=== PATIENT | male | born 1985 | race Two or more races ===

== ENCOUNTER 2021-06-03 17:25 | Emergency (ER) | payer MEDICAID, SELFPAY ==
--- NOTE | 2021-06-03 20:08 | PC.NURSE ---
pt not in the waiting room on 3 calls.
== END 2021-06-03 20:23 | disposition left against medical advice (07) ==
PROVIDERS: Emergency Provider Emergency Medicine
DX: K59.00 Constipation, unspecified (principal)

== ENCOUNTER 2021-10-26 17:42 | Emergency (ER) | payer MEDICAID, SELFPAY ==
--- NOTE | ~2021-10-26 | XR_ITS ---
EXAMINATION: XR ABDOMEN KUB CLINICAL INDICATION: Constipation COMPARISON: None TECHNIQUE: AP view of the abdomen. FINDINGS: The bowel gas pattern is normal with no evidence of ileus or obstruction. Moderate stool burden is present in the colon. No unusual soft tissue calcifications are noted. The bones are unremarkable. XR/XR KUB IMPRESSION: Moderate stool burden is present. No evidence of bowel obstruction.
[2021-10-26 17:48] VITALS: BP 116/79; PULSE 73; RESP 18; TEMP 36.6; O2SAT 99; BMI 22.7
--- NOTE | 2021-10-26 18:34 | ED_ITS ---
HPI - Abdominal Pain General Chief Complaint: Abdominal Pain Stated Complaint: liver/ kidney pain? hurts to urinate Time Seen by Provider: 10/26/21 18:19 Source: patient Mode of arrival: ambulatory Limitations: no limitations History of Present Illness HPI narrative: Patient is a 35-year-old male with a past medical history of substance abuse, currently prescribed Suboxone. He presents emergency department for evaluation of abdominal pain. Patient reports 2 months ago he had a single occurrence of blood in his stool for which he presented to the emergency department and left due to long wait times. He denies any recurrence of bloody or dark stool. However, states soon after that he began experiencing left lower quadrant abdominal pain, suprapubic pain, pain with initiation of urination, urinary frequency, urinary hesitancy. Reports symptoms have been increasing over the past week. In addition, he does report penile discharge that is white/yellow,denies history of or suspicion of sexually transmitted infection, currently sexually active with one sexual partner that he has been for many years. He does have a history of constipation, for which he is taking Colace twice daily with last bowel movement 3 days ago, he feels bloated, and this is affecting his appetite. He denies fevers, chills, nausea, vomiting, upper abdominal pain, testicular pain or swelling, blood in stool, mucus in stool, da rk stools, recent unintentional weight loss, history of renal calculi, history of urinary tract infection or pyelonephritis. MD elicited complaint: abdominal pain Onset (ago): month(s) Pain Consistency: constant Location: LLQ Severity: moderate Pain scale (0-10): 5 Quality: aching Associated symptoms: constipation and dysuria Related Data Previous Rx's Medication Instructions Recorded doxycycline hyclate 100 mg capsule 100 mg PO BID 7 Days #14 cap 10/26/21 sennosides 8.6 mg capsule (senna) 8.6 mg PO BEDTIME PRN #7 cap 10/26/21 Allergies Allergy/AdvReac Type Severity Reaction Status Date / Time No Known Allergies Allergy Unverified 06/06/20 17:02 Review of Systems Review of Systems Constitutional: No weight loss, fever, chills, weakness or fatigue. HEENT: No visual loss, blurred vision, double vision or yellow sclera. No hearing loss, sneezing, congestion, runny nose or sore throat. Skin: No rash or itching. Cardiovascular: No chest pain, chest pressure or chest discomfort. No palpitations or pedal edema. Respiratory: No shortness of breath, cough or sputum production. Gastrointestinal: + constipation, abdominal pain as noted in HPI. No nausea, vomiting or diarrhea. No blood in stool. Genitourinary: + burning micturition, urinary frequency and hesitancy. Neurologic: No headache, dizziness, syncope. Musculoskeletal: No muscle pain, back pain, joint pain or stiffness. Hematologic: No bleeding or bruising. Lymphatics: No enlarged lymph nodes. Psychiatric:No depression or anxiety. Endocrine: No reports of sweating. No polydipsia. Physical Exam Verdana 4l Vital Signs: Verdana 4d Verdana 4d Vital Signs: Verdana 4d Verdana 4Bd Last Vital Signs Verdana 4d Carton Wrapper New 4d Carton Wrapper New 4d Temp 98 F 10/26/21 17:48 Carton Wrapper New 4d Pulse 70 10/26/21 19:03 Carton Wrapper New 4d Resp 15 10/26/21 19:03 BP 131/84 10/26/21 19:03 Pulse Ox 97 10/26/21 19:03 BMI result Body Mass Index 22.7 Vital signs have been reviewed as normal and appeared to be correct. Blood pressure normal.? Heart rate normal.? Respiration rate normal. Temperature normal.? Oxygen saturation normal. Appearance: Alert.?Oriented to person, place and time. No acute distress.?Normal affect. Eyes: Pupils equal, round and reactive to light.? ENT: Pharynx normal.?? Neck: Normal inspection.? Neck supple.?? CVS: Heart sounds normal. Normal heart rate and rhythm.? Pulses normal.?? Respiratory: No respiratory distress.? Lung sounds clear to auscultation bilaterally?? Abdomen: Soft, non-tender to palpation. Normoactive bowel sounds. No pulsatile mass.? : Performed with flamer sealer; Rahat, PCT. Normal penis and testes. No scrotal mass, no tenderness, no active urethral discharge, penile lesions. No inguinal hernia. Skin: Skin warm and dry.? Normal skin color.? Normal skin turgor.?? Extremities: No lower extremity edema.? Neuro: Moves all extremities spontaneously. Sensation intact bilaterally. No focal neuro deficits. Ambulates with normal steady gait. Course Course Course Narrative: Patient is 35-year-old male being evaluated for abdominal pain and pain with urination and penile discharge. He is well appearing, nontoxic, afebrile, not tachycardic nor hypotensive. History and physical exam not consistent with GI perforation, GI bleed, AAA, aortic dissection. Not consistent with strangulated hernia, bowel obstruction, mesenteric ischemia, diverticulitis, testicular torsion. Given the presence of penile discharge and painful urination will treat empirically for gonorrhea and chlamydia with ceftriaxone 500 mg IM and will be discharged home with doxycycline 100 mg twice daily for 7 days. Will obtain urinalysis, CBC and CMP. KUB to evaluate for constipation or obstruction, though low suspicion for this. Reevaluation(s) Reevaluation #1: CBC and CMP are unremarkable. Urinalysis unremarkable no microscopic hematuria or concern for urinary tract infection. KUB indicates moderate stool burden but no concern for obstruction. Discussed findings with patient. Reviewed plan for discharge home, given new prescription for senna in addition to docusate for constipation, discussed reasons to return to the emergency department, all questions answered, patient agrees with plan of care. Time: 19:52 MDM - Abdominal Pain Medical Records Attestation: I reviewed the patient's medical records. Lab Data Attestation: I reviewed the patient's lab results. Result diagrams: 10/26/21 18:53 10/26/21 18:53 Labs: Lab Results 10/26/21 10/26/21 10/26/21 Range/Units 18:53 18:53 18:53 WBC 5.8 (4.8-10.8) X10*3/uL RBC 4.30 L (4.60-5.80) X10*6/uL Hgb 13.3 L (14.0-18.0) g/dl Hct 38.7 L (42.0-52.0) % MCV 90.0 (80.0-98.0) fL MCH 30.9 (27.0-33.0) pg MCHC 34.4 (31.0-36.0) g/dl RDW 12.4 (11.0-16.0) % Plt Count 232 (160-400) X10*3/uL MPV 9.7 (9.4-12.4) fL Absolute Nucleated RBC 0.000 (0.0-0.012) X10*3/uL Nucleated RBC % (auto) 0.0 (0.0-0.2) /100WBC Sodium 140 (135-145) mmol/L Potassium 3.8 (3.3-5.1) mmol/L Chloride 104 (96-108) mmol/L Carbon Dioxide 29 (22-29) mmol/L Anion Gap 11 L (12-20) BUN 10 (9-16) mg/dL Creatinine 0.83 (0.5-1.4) mg/dL Estim Creat Clear Calc 115.5 Estimated GFR > 60 Random Glucose 78 (60-115) mg/dL Calcium 9.9 (8.4-10.2) mg/dL Total Bilirubin 0.5 (0.0-1.0) mg/dL AST 16 (5-37) U/L ALT < 6 (0-40) U/L Alkaline Phosphatase 88 (39-117) U/L Total Protein 8.2 H (6.5-8.0) g/dL Albumin 4.5 (3.5-5.0) g/dL Lipase 8 (8-78) U/L Urine Color Urine Appearance Urine pH (5.0-8.0) Ur Specific [place] (1.005-1.025) Urine Protein (NEG-TRACE) MG/DL Urine Glucose (UA) (NEG) MG/DL Urine Ketones (NEG) MG/DL Urine Blood (NEG) Urine Nitrite (NEG) Ur Leukocyte Esterase (NEG) 10/26/21 Range/Units 19:07 WBC (4.8-10.8) X10*3/uL RBC (4.60-5.80) X10*6/uL Hgb (14.0-18.0) g/dl Hct (42.0-52.0) % MCV (80.0-98.0) fL MCH (27.0-33.0) pg MCHC (31.0-36.0) g/dl RDW (11.0-16.0) % Plt Count (160-400) X10*3/uL MPV (9.4-12.4) fL Absolute Nucleated RBC (0.0-0.012) X10*3/uL Nucleated RBC % (auto) (0.0-0.2) /100WBC Sodium (135-145) mmol/L Potassium (3.3-5.1) mmol/L Chloride (96-108) mmol/L Carbon Dioxide (22-29) mmol/L Anion Gap (12-20) BUN (9-16) mg/dL Creatinine (0.5-1.4) mg/dL Estim Creat Clear Calc Estimated GFR Random Glucose (60-115) mg/dL Calcium (8.4-10.2) mg/dL Total Bilirubin (0.0-1.0) mg/dL AST (5-37) U/L ALT (0-40) U/L Alkaline Phosphatase (39-117) U/L Total Protein (6.5-8.0) g/dL Albumin (3.5-5.0) g/dL Lipase (8-78) U/L Urine Color YELLOW Urine Appearance CLEAR Urine pH 6.5 (5.0-8.0) Ur Specific [place] 1.020 (1.005-1.025) Urine Protein NEG (NEG-TRACE) MG/DL Urine Glucose (UA) NEG (NEG) MG/DL Urine Ketones NEG (NEG) MG/DL Urine Blood NEG (NEG) Urine Nitrite NEG (NEG) Ur Leukocyte Esterase NEG (NEG) Imaging Data KUB XR: Attestation: I personally reviewed and interpreted this imaging study as follows: Radiologist's impression: IMPRESSION: Moderate stool burden is present. No evidence of bowel obstruction. Discharge Plan Discharge Clinical Impression: Constipation, Difficult or painful urination Patient Disposition: Home, Self-Care Instructions: Constipation (ED) Additional Instructions: Regarding your penile discharge, you received ceftriaxone while in the emergency department, please take doxycycline twice daily for 7 days. For your constipation can take Senna 2 tablets at night in addition to your colace. Stop taking this medication if you develop diarrhea. Please follow-up with your primary care provider in 1-2 days. You may return to the emergency department with any new or worsening concerns or symptoms. Prescriptions: New doxycycline hyclate 100 mg capsule 100 mg PO BID 7 Days Qty: 14 0RF senna 8.6 mg capsule 8.6 mg PO BEDTIME PRN (Reason: constipation) Qty: 7 0RF Interventions: ED Discharge Assessment Last Done: 10/26/21 20:04 Discharge Date/Time: 10/26/21 20:09 [facility] Past Medical History Attestation statement: The following information was validated with the patient. Source: old records reviewed Social History Social History Advance Directives: No Advance Directives Information Provided: No
[2021-10-26 19:00] LABS: Hematocrit 38.7 % (42.0-52.0); Hemoglobin 13.3 g/dl (14.0-18.0); Mean Corpuscular HGB Conc 34.4 g/dl (31.0-36.0); Mean Corpuscular Hemoglobin 30.9 pg (27.0-33.0); Mean Platelet Volume 9.7 fL (9.4-12.4); Platelet Count 232 X10*3/uL (160-400); Red Cell Distribution Width 12.4 % (11.0-16.0); White Blood Count 5.8 X10*3/uL (4.8-10.8)
[2021-10-26 19:03] VITALS: BP 131/84; PULSE 70; RESP 15; O2SAT 97
[2021-10-26 19:13] LABS: Lipase 8 U/L (8-78)
[2021-10-26 19:20] LABS: Appearance Urine CLEAR; Color Urine YELLOW; Glucose Urine UA NEG (NEG); Leukocyte Esterase Urine NEG (NEG); Nitrite Urine NEG (NEG); PH 6.5 (5.0-8.0); Urine Blood NEG (NEG); Urine Ketones NEG (NEG); Urine Protein NEG (NEG-TRACE)
[2021-10-26 19:32] LABS: Alanine Aminotransferase < 6 U/L (0-40); Albumin Level 4.5 g/dL (3.5-5.0); Alkaline Phosphatase 88 U/L (39-117); Anion Gap 11 (12-20); Aspartate Amino Transferase 16 U/L (5-37); Bilirubin Total 0.5 mg/dL (0.0-1.0); Blood Urea Nitrogen 10 mg/dL (9-16); Calcium 9.9 mg/dL (8.4-10.2); Carbon Dioxide 29 mmol/L (22-29); Chloride 104 mmol/L (96-108); Creatinine Clr Calc Pharmacy 115.5; Estimated Glomerular Filt Rate > 60; Glucose Random 78 mg/dL (60-115); Potassium 3.8 mmol/L (3.3-5.1); Sodium 140 mmol/L (135-145); Total Protein 8.2 g/dL (6.5-8.0)
[2021-10-26] MEDS: cefTRIAXone sodium 500 MG, Lidocaine HCl 1 % MPF 1 ML IM (20:01)
[2021-10-27 00:56] LABS: CT PCR NOT DETECTED (Not Detect.); NG PCR NOT DETECTED (Not Detect.)
== END 2021-10-26 20:09 | disposition home or self-care (01) ==
PROVIDERS: Nurse Practitioner Family; Emergency Provider Emergency Medicine Emergency Medical Services
DX: R10.13 Epigastric pain (principal); K59.00 Constipation, unspecified; R30.0 Dysuria; Z79.899 Other long term (current) drug therapy
CPT/HCPCS: 36415; 74018; 80053; 81003; 83690; 85027; 87491; 87591; 96360; 99283; J0696

== ENCOUNTER 2021-10-30 15:20 | Emergency (ER) | payer MEDICAID, SELFPAY | END 2021-10-30 19:20 | disposition left against medical advice (07) | PROVIDERS: Emergency Provider Emergency Medicine | DX: R11.10 Vomiting, unspecified (principal) ==

== ENCOUNTER 2022-02-22 13:08 | Emergency (ER) | payer MEDICAID, SELFPAY ==
--- NOTE | ~2022-02-22 | CT_ITS ---
EXAMINATION: CT SOFT TISSUE NECK WITHOUT CONTRAST CLINICAL INFORMATION: Dental pain and right facial swelling. Question deep space infection. COMPARISON: None TECHNIQUE: Helical imaging was performed in the axial plane with generation of coronal and sagittal reformatted images. This CT examination was performed using dose optimization techniques as appropriate, variously including the following: *Automated exposure control *Adjustment of mA and/or kV according to patient size (this includes techniques or standardized protocols for targeted exams where dose is matched to indication/reason for exam; i.e. extremities or head) *Use of iterative reconstruction technique DLP: 690 mGy-cm FINDINGS: Periapical lucency surrounding the roots of the right mandibular first molar tooth with a focal dehiscence of the buccal surface of the mandible compatible with periapical disease. There is additional hilar periapical lucency surrounding the root of the right mandibular canine. Extensive soft tissue infiltration along the buccal surface of the mandible and extensive subcutaneous edema in the perimandibular soft tissues extending beneath the mandible into the neck anteriorly well below the level of the hyoid bone involving the tissues superficial and deep to the platysma muscle compatible with cellulitis and soft tissue infection. Mild thickening of the right platysma muscle. No appreciable discrete well-formed fluid collection on this noncontrast exam. Asymmetrically prominent right submandibular lymph node and upper cervical lymph nodes measuring up to 0.8 cm in short axis and likely reactive. No additional lymphadenopathy. No appreciable edema or swelling at the floor the mouth or involving the tongue. Normal appearance of the glottis and retropharyngeal soft tissues. Major salivary glands and thyroid gland are unremarkable. Minimal right apical pleural thickening. Visualized upper lungs otherwise grossly clear. Small biapical blebs are paraseptal emphysematous changes noted. Visualized intracranial contents are grossly unremarkable. Globes and retro-orbital structures are within normal limits. Normal appearance of the paint tinter space and parapharyngeal fat. Visualized paranasal sinuses and mastoid air cells are normally aerated. No acute fracture or suspicious osseous lesion. Normal alignment of the TMJs. CT/CT soft tissue neck wo con IMPRESSION: 1. Periapical lucency/disease compatible with periapical abscess surrounding the root of the right mandibular first molar tooth with dehiscence of the buccal surface of the mandible and extensive overlying soft tissue infiltration/inflammatory change compatible and subcutaneous edema compatible with edema or cellulitis extending throughout the anterior neck right greater than left well below the hyoid bone. 2. No discrete low-density fluid collection/soft tissue abscess appreciated. 3. Mildly asymmetrically enlarged right upper cervical and submandibular lymph nodes, likely reactive.
[2022-02-22 13:14] VITALS: BP 126/79; PULSE 70; RESP 18; TEMP 36.9; O2SAT 100; BMI 18.5
--- NOTE | 2022-02-22 15:45 | ED.DENTAL ---
HPI - Dental/Oral General Chief complaint: Dental/Oral Stated complaint: Dental pain from root canal Time Seen by Provider: 02/22/22 15:29 Source: patient Mode of arrival: ambulatory Limitations: no limitations History of Present Illness HPI Narrative: Patient presents emergency department for evaluation of dental pain. He reports 1 month ago having a root canal to bottom right for molars. Soon after he developed an infection which he reports was draining pus he was seen by his dentist to prescribe antibiotics. He states once the symptoms resolved he stops taking the antibiotics. Four days ago he developed return of pain and increased swelling to the right side of his face therefore he began taking the leftover antibiotics again, states he has been taking them 3 times a day for the past 4 days. Over the past 2 days the swelling has extended down below was drawn he feels the right side of his neck to be swollen. He feels feverish at times, Has not taken his temperature. Has been taking ibuprofen 800mg with improvement in his pain. Denies neck pain, neck stiffness, chest pain, palpitations, shortness of breath, difficulty breathing, nausea, vomiting, abdominal pain. Teeth map: 1. root canal 2. root canal 3. root canal 4. root canal Related Data Previous Rx's Medication Instructions Recorded doxycycline hyclate 100 mg capsule 100 mg PO BID 7 Days #14 cap 10/26/21 sennosides 8.6 mg capsule (senna) 8.6 mg PO BEDTIME PRN #7 cap 10/26/21 amoxicillin 875 mg-potassium 1 tab PO Q12H 10 Days #20 tab 02/22/22 clavulanate 125 mg tablet Allergies Allergy/AdvReac Type Severity Reaction Status Date / Time No Known Allergies Allergy Verified 02/22/22 13:14 Review of Systems Review of Systems: ENT/ Mouth: dental pain, facial swelling, no sore throat, no hoarseness of voice, no difficulty swallowing, no painful swallowing. Yes all other systems are reviewed and are negative PMFSH Past Medical History Attestation statement: The following information was validated with the patient. Source: old records reviewed Social History Social History Advance Directives: No Advance Directives Information Provided: No Physical Exam Vital Signs: Vital Signs: Last Vital Signs Temp 98.4 F 06/05/22 13:14 Pulse 70 02/22/22 13:14 Resp 18 02/22/22 13:14 BP 126/79 02/22/22 13:14 Pulse Ox 100 02/22/22 13:14 BMI result Body Mass Index 18.5 Vital signs have been reviewed as normal and appeared to be correct. Blood pressure normal.? Heart rate normal.? Respiration rate normal. Temperature normal.? Oxygen saturation normal. Appearance: Alert.?Oriented to person, place and time. No acute distress.?Normal affect. Head: right buccal soft tissue swelling Eyes: Pupils equal, round and reactive to light.? ENT: Pharynx normal.?? No exudate. Uvula midline. No hoarseness. No trismus. Tenderness with palpation along the right lower jaw, gums Neck: mild soft tissue swelling to the right anterior neck. No erythema. Right cervical lymphadenopathy.? Neck supple.?? CVS: Heart sounds normal. Normal heart rate and rhythm.? Pulses normal.?? Respiratory: No respiratory distress.? Lung sounds clear to auscultation bilaterally?? Abdomen: Soft and non-tender. Normoactive bowel sounds. No pulsatile mass.?? Skin: Skin warm and dry.? Normal skin color.? Normal skin turgor.?? Extremities: No lower extremity edema.? No calf ttp? Neuro: Moves all extremities spontaneously. Sensation intact bilaterally. No motor deficits Ambulates with normal steady gait. Course Course Course Narrative: patient is a 36-year-old male with a past medical history of recent dental procedure presenting to emergency department for evaluation of facial pain swelling extending into the neck. He reports trialing residual antibiotics, question doxycycline that he was previously prescribed, but has not made any improvement over the past 4 days. Ibuprofen 800 mg 3 times daily has been helping his pain, he does endorse that he is currently prescribed Suboxone as well. He is overall well appearing, hemodynamically stable, does not meet SIRS criteria, however he does appear to be uncomfortable, have significant swelling. Concerning for deep space infection, will obtain CBC, CMP, lactic acid and blood cultures in addition to CT of the soft tissues of neck. patient offered oxycodone for pain management at this time however declined, requesting only ibuprofen 800 mg, last taken 0800 Reevaluation(s) Reevaluation #1: CMP overall unremarkable. No lactic acidosis. No leukocytosis, mild normocytic anemia consistent with baseline. CT is pending at this time. Reports improvement in his pain with ibuprofen. Time: 17:28 Reevaluation #2: CT of the soft tissues neck consistent with periapical abscess surrounding the root of the right mandibular first molar with dehiscence of the buccal surface of the mandible and subcutaneous edema throughout the right anterior neck. Discussed this case with ED attending, who also evaluated patient, recommended Zosyn IV, Bedside procedure under aseptic technique, drainage of abscess, 5mL of serosanguineous fluid removed. Patient updated on plan of care. Patient will be discharged after Zosyn administration, advised follow-up with dentist within 3-5 days, discussed reasons to return back to the emergency department, provided with new prescription for Augmentin twice daily for 10 days. All questions answered, discharged home in stable condition. Time: 18:28 [facility] - Dental/Oral Medical Records Attestation: I reviewed the patient's medical records. Lab Data Attestation: I reviewed the patient's lab results. Result diagrams: 02/22/22 16:44 02/22/22 16:43 Labs: Lab Results 02/22/22 02/22/22 02/22/22 Range/Units 16:43 16:43 16:44 WBC 8.1 (4.8-10.8) X10*3/uL RBC 3.93 L (4.60-5.80) X10*6/uL Hgb 12.0 L (14.0-18.0) g/dl Hct 34.7 L (42.0-52.0) % MCV 88.3 (80.0-98.0) fL MCH 30.5 (27.0-33.0) pg MCHC 34.6 (31.0-36.0) g/dl RDW 13.1 (11.0-16.0) % Plt Count 186 (160-400) X10*3/uL MPV 9.9 (9.4-12.4) fL Immature Gran % (Auto) 0.1 (0.0-0.4) % Neut % (Auto) 73.0 (45-73) % Lymph % (Auto) 15.4 L (20-40) % [place] % (Auto) 11.2 H (2-11) % Eos % (Auto) 0.1 (0-4) % Baso % (Auto) 0.2 (0-2) % Lymph # (Auto) 1.2 (1.2-4.9) X10*3/uL [place] # (Auto) 0.9 (0.1-1.2) X10*3/uL Eos # (Auto) 0.0 (0.0-0.4) X10*3/uL Baso # (Auto) 0.0 (0.0-0.2) X10*3/uL Abs Immat Gran (auto) 0.01 (0.00-0.03) X10*3/uL Absolute Neuts (auto) 5.9 (2.0-8.3) x10*3/uL Absolute Nucleated RBC 0.000 (0.0-0.012) X10*3/uL Nucleated RBC % (auto) 0.0 (0.0-0.2) /100WBC Sodium 139 (135-145) mmol/L Potassium 3.7 (3.3-5.1) mmol/L Chloride 103 (96-108) mmol/L Carbon Dioxide 25 (22-29) mmol/L Anion Gap 15 (12-20) BUN 7 L (9-16) mg/dL Creatinine 0.77 (0.5-1.4) mg/dL Estim Creat Clear Calc 100.7 Estimated GFR > 60 Random Glucose 74 (60-115) mg/dL Lactic Acid 0.7 (0.5-2.0) mmol/L Calcium 9.5 (8.4-10.2) mg/dL Total Bilirubin 0.5 (0.0-1.0) mg/dL AST 24 D (5-37) U/L ALT 13 (0-40) U/L Alkaline Phosphatase 78 (39-117) U/L Total Protein 8.1 H (6.5-8.0) g/dL Albumin 4.7 (3.5-5.0) g/dL Imaging Data CT neck: Radiologist's impression: Impression: 1. periapical lucency/disease compatible with periapical abscess surrounding the root of the right mandibular first molar tooth with dehiscence of the buccal surface of the mandible and extensive overlying soft tissue infiltration/inflammatory change compatible with subcutaneous edema compatible with edema or cellulitis extending throughout the anterior neck right greater than left well below the hyoid bone. 2. No discrete low-density fluid collection/ soft tissue abscess appreciated. 3. Mildly asymmetrically enlarged right upper cervical and submandibular lymph nodes, likely reactive. Discharge Plan Discharge Clinical Impression: Abscess, periapical Patient Disposition: Home, Self-Care Instructions: Dental Abscess (ED) Additional Instructions: You received a dose of Zosyn IV antibiotics while in the emergency department. A prescription for Augmentin and oral antibiotic was sent to your pharmacy please take this twice a day for 10 days, please complete the entire course of antibiotics even if your symptoms improved do not stop taking the antibiotic. Contact your dentist to schedule a follow-up visit in 3-5 days. Return to the emergency department any new or worsening symptoms or concerns, such as worsening pain, swelling, redness, drainage, fevers, chills, chest pain, shortness of breath. CT soft tissue neck: Impression: 1. periapical lucency/disease compatible with periapical abscess surrounding the root of the right mandibular first molar tooth with dehiscence of the buccal surface of the mandible and extensive overlying soft tissue infiltration/inflammatory change compatible with subcutaneous edema compatible with edema or cellulitis extending throughout the anterior neck right greater than left well below the hyoid bone. 2. No discrete low-density fluid collection/ soft tissue abscess appreciated. 3. Mildly asymmetrically enlarged right upper cervical and submandibular lymph nodes, likely reactive. Prescriptions: New amoxicillin-pot clavulanate 875-125 mg tablet 1 tab PO Q12H 10 Days Qty: 20 0RF No Action doxycycline hyclate 100 mg capsule 100 mg PO BID 7 Days Qty: 14 0RF senna 8.6 mg capsule 8.6 mg PO BEDTIME PRN (Reason: constipation) Qty: 7 0RF
[2022-02-22] MEDS: Ibuprofen 800 MG TABLET PO (16:14)
[2022-02-22 16:53] LABS: MANUAL DIFF FLAG NO
[2022-02-22 16:55] LABS: Basophils Percent Auto 0.2 % (0-2); Eosinophils Percent Auto 0.1 % (0-4); Hematocrit 34.7 % (42.0-52.0); Imm Gran Abs Auto 0.01 X10*3/uL (0.00-0.03); Imm Gran Pct Auto 0.1 % (0.0-0.4); Lymphocytes Absolute Auto 1.2 X10*3/uL (1.2-4.9); Lymphocytes Percent Auto 15.4 % (20-40); Mean Corpuscular HGB Conc 34.6 g/dl (31.0-36.0); Mean Corpuscular Hemoglobin 30.5 pg (27.0-33.0); Mean Corpuscular Volume 88.3 fL (80.0-98.0); Mean Platelet Volume 9.9 fL (9.4-12.4); Monocytes Absolute Auto 0.9 X10*3/uL (0.1-1.2); Monocytes Percent Auto 11.2 % (2-11); Neutrophils Absolute Auto 5.9 x10*3/uL (2.0-8.3); Platelet Count 186 X10*3/uL (160-400); Red Blood Count 3.93 X10*6/uL (4.60-5.80); Red Cell Distribution Width 13.1 % (11.0-16.0); White Blood Count 8.1 X10*3/uL (4.8-10.8)
[2022-02-22 17:03] LABS: Lactic Acid 0.7 mmol/L (0.5-2.0)
[2022-02-22 17:08] LABS: Alanine Aminotransferase 13 U/L (0-40); Albumin Level 4.7 g/dL (3.5-5.0); Alkaline Phosphatase 78 U/L (39-117); Anion Gap 15 (12-20); Aspartate Amino Transferase 24 U/L (5-37); Bilirubin Total 0.5 mg/dL (0.0-1.0); Blood Urea Nitrogen 7 mg/dL (9-16); Calcium 9.5 mg/dL (8.4-10.2); Carbon Dioxide 25 mmol/L (22-29); Chloride 103 mmol/L (96-108); Creatinine Clr Calc Pharmacy 100.7; Estimated Glomerular Filt Rate > 60; Glucose Random 74 mg/dL (60-115); Potassium 3.7 mmol/L (3.3-5.1); Sodium 139 mmol/L (135-145); Total Protein 8.1 g/dL (6.5-8.0)
[2022-02-22] MEDS: Piperacillin Sodium/Tazobactam 3.375 GM in 0.9 % Sodium Chloride 50 ML IV (18:58)
== END 2022-02-22 20:41 | disposition home or self-care (01) ==
PROVIDERS: Nurse Practitioner Family; Emergency Provider Student in an Organized Health Care Education/Training Program
DX: K04.7 Periapical abscess without sinus (principal); K08.89 Other specified disorders of teeth and supporting structures
CPT/HCPCS: 36415; 70490; 80053; 83605; 85025; 87040; 96365; 99283; 99284; J2543

== ENCOUNTER 2023-01-30 19:16 | Emergency (ER) | payer MEDICAID, SELFPAY ==
--- NOTE | ~2023-01-30 | XR_ITS ---
EXAMINATION: XR RIBS, RIGHT CLINICAL INFORMATION: Trauma COMPARISON: None available. TECHNIQUE: 3 views of the right ribs were obtained. FINDINGS: Lungs are clear. No consolidation, pneumothorax, or pleural effusion. The cardiomediastinal silhouette and pulmonary vasculature are normal. Osseous structures are unremarkable. Ribs are intact. No fractures are identified. XR/XR ribs RT min 3V w CXR1V IMPRESSION: No fractures. Clear lungs.
[2023-01-30 19:27] VITALS: BP 115/71; PULSE 89; RESP 20; TEMP 37.3; O2SAT 98; BMI 20.4
--- NOTE | 2023-01-30 19:29 | ED_ITS ---
HPI - General Adult General Chief complaint: Extremity Problem Stated complaint: fractured Right Rib/ hurts to breathe Time Seen by Provider: 01/30/23 20:30 Source: patient Mode of arrival: ambulatory Limitations: no limitations History of Present Illness HPI narrative: 87-year-old male presents with right-sided lower rib pain, patient states he is going down the stairs, carrying a car engine, he hit his ribs on the car engine, he slipped down the stairs, did not hit his head or lose consciousness. Not on blood thinners. He reports that the engine hit his ribs so he thinks he has a rib fracture. He reports initially pain was severe however now improving. Pain worse with movement better rest. Also worse with deep breathing. Denies numbness, tingling, fevers, chills, chest pain, shortness of breath, headache, vision changes, dizziness and weakness. Related Data Previous Rx's Medication Instructions Recorded doxycycline hyclate 100 mg capsule 100 mg PO BID 7 days #14 caps 10/26/21 sennosides 8.6 mg capsule (senna) 8.6 mg PO BEDTIME PRN constipation 10/26/21 #7 caps amoxicillin 875 mg-potassium 1 tab PO Q12H 10 days #20 tabs 02/22/22 clavulanate 125 mg tablet ibuprofen 800 mg tablet 800 mg PO Q8H PRN pain #20 tabs 02/23/22 lidocaine 5 % topical patch 1 patch topical DAILY PRN pain #15 01/30/23 ea Allergies Allergy/AdvReac Type Severity Reaction Status Date / Time No Known Allergies Allergy Verified 01/30/23 19:30 Review of Systems Review of Systems: Constitutional : No Weight loss, No Fever, No Chills, No Fatigue, No Malaise ENT/Mouth : No sore throat, No Rhinorrhea Eyes: No Eye Pain, No Swelling, No Redness Cardiovascular : No Chest Pain, No SOB, No Dyspnea on Exertion, No Orthopnea, No Edema, No Palpitations Respiratory : No Cough, No Sputum, No Wheezing Gastrointestinal : No Nausea, No Vomiting, No Diarrhea, No Constipation, No abdominal Pain, No Hematochezia, No Melena Genitourinary : No Dysuria, No Urinary Frequency, No Hematuria, Musculoskeletal : No joint pain, No Myalgias, No Joint Swelling Skin : No Skin Lesions, No rash Neuro : No Weakness, No Numbness, No Dizziness, No Headache Psych : No Anxiety/Panic, No Depression All other systems reviewed and are negative Yes all other systems are reviewed and are negative [facility] Past Medical History Attestation statement: The following information was validated with the patient. Source: old records reviewed and nursing notes reviewed Social History Social History Advance Directives: No Advance Directives Information Provided: No Physical Exam ED Vital Signs: Vital Signs - 24 hr 01/30/23 19:27 01/30/23 21:32 Temperature 99.2 F 97.9 F Pulse Rate 89 64 Respiratory Rate 20 18 Blood Pressure 115/71 115/85 Pulse Oximetry 98 100 Oxygen Delivery Method Room Air BMI result Body Mass Index 20.4 vss Appearance: Alert.? Oriented X3.? No acute distress.? Head: Normocephalic, atraumatic, no step-offs or deformities Eyes: Pupils equal, round and reactive to light.? CVS: Normal heart rate and rhythm.? Pulses normal.? Respiratory: No respiratory distress.? Breath sounds normal.? Abdomen: Soft and nontender.? Skin: Skin warm and dry.? Normal skin color.? Normal skin turgor.?+ abrasion to R lower rib images below Extremities: No lower extremity edema.? No calf ttp. 5/5 strength to bilateral upper and lower extremities Neuro: Oriented X 3.? No motor deficit.? No sensory deficit. CN 2-12 intact Course Course Course Narrative: RME- 37-year-old male presents for evaluation of right flank pain after falling down while holding a car engine. He reports that he injured his whole right side. Small abrasion of the right upper abdomen on exam no significant ecchymosis or deep lacerations. No crepitus. Plan for x-rays of right ribs Reevaluation(s) Reevaluation #1: Lidoderm applied patient feels completely fine he says pain is gone. Chest x- ray unremarkable no signs of fractures or dislocations. Patient is expressing he would like to leave does not want further imaging, I do not have high suspicion for rib fracture, pneumothorax or flail chest. Patient well-appearing saturating 100% on room air. Educated patient on diagnosis and treatment plan, answered all question, patient verbalizes understanding. At this time patient will be discharged home, advised to return with new or worsening symptoms. Educated on worrisome signs and symptoms and when to return. At this time I feel comfortable discharge home. Time: 22:31 Medications Administered Discontinued Medications Generic Name Dose Route Start Last Admin Trade Name Milad PRN Reason Stop Dose Admin Lidocaine 1 patch 01/30/23 21:31 01/30/23 21:39 Lidocaine 4 % Patch Adh..Patch TRANSDERMA 01/30/23 21:32 1 patch ONCE ONE Administration Protocol Medical Decision Making Medical Decision Making [facility] Narrative: 37 year old male presents w/ chest wall abrasion X few hours hurt himself w/ a car engine, reports rib pain worse w/ breathing PE w/ abrasion and point tenderness overlying rib. No signs of flail chest. Clear breath sounds throughout The chest wall contusion. Possible rib fracture. No signs of flail chest or pneumothorax. Plan at this time imaging. Offered patient pain meds however he states now he is not really having any pain. Differential Diagnosis Differential Diagnoses: The differential diagnosis associated with the presentation includes The chest wall contusion. Possible rib fracture. No signs of flail chest or pneumothorax. Admission/Observation Consideration of admission/observation: Escalation of care including admission/observation considered Lab Data [facility] Lab Attestation statement: I reviewed the patient's lab results. Independent Interpretation I performed an independent interpretation of an: Plain X-Ray ( XR/XR ribs RT min 3V w CXR1V IMPRESSION: No fractures. Clear lungs. ) Radiology Impression Discussion of test interpretation with radiology: I have reviewed the radiologist's reading. External Record Review External record reviewed: Inpatient record, Office record, Outpatient record, Prior outpatient labs, Prior outpatient radiology, Primary care record and Outside ED record Core Measures AMI core measures followed: Yes Measure exclusions: not indicated Discharge Plan Discharge Clinical Impression: Abrasion of chest wall Patient Disposition: Home, Self-Care Instructions: Abrasion (ED) Additional Instructions: Take your medications as prescribed. If you were prescribed antibiotics today, it is important that you take your medication to their entirety, do not skip any doses, do not finish them early. Follow-up with your primary care provider this week. Return to the emergency department with new or worsening symptoms. Such as fevers, chills, chest pain, shortness of breath, nausea, vomiting, dizziness, headache, vision changes, lethargy In case of emergency call 911 ?XR/XR ribs RT min 3V w CXR1V IMPRESSION: No fractures. Clear lungs. ? Prescriptions: New lidocaine 5 % adhesive patch,medicated 1 patch topical DAILY PRN (Reason: pain) Qty: 15 0RF Rx Instructions: leave on most painful area for up to 12 hrs No Action doxycycline hyclate 100 mg capsule 100 mg PO BID 7 Days Qty: 14 0RF senna 8.6 mg capsule 8.6 mg PO BEDTIME PRN (Reason: constipation) Qty: 7 0RF amoxicillin-pot clavulanate 875-125 mg tablet 1 tab PO Q12H 10 Days Qty: 20 0RF ibuprofen 800 mg tablet 800 mg PO Q8H PRN (Reason: pain) Qty: 20 0RF Referrals: [facility] [Primary Care Provider] - 2 days Stand Alone Forms: Work/School Release Interventions: ED Discharge Assessment Last Done: 01/30/23 21:51 Discharge Date/Time: 01/30/23 21:51
[2023-01-30 21:32] VITALS: BP 115/85; PULSE 64; RESP 18; TEMP 36.6; O2SAT 100
[2023-01-30] MEDS: Lidocaine 4 % Patch ADH..PATCH 1 PATCH TRANSDERMA (21:39)
== END 2023-01-30 21:51 | disposition home or self-care (01) ==
PROVIDERS: Emergency Provider Emergency Medicine Emergency Medical Services
DX: S20.311A Abrasion of right front wall of thorax, initial encounter (principal); W10.8XXA Fall (on) (from) other stairs and steps, initial encounter; R07.81 Pleurodynia; Y93.9 Activity, unspecified; Y92.039 Unspecified place in apartment as the place of occurrence of the external cause; Y99.9 Unspecified external cause status
CPT/HCPCS: 71101; 99283

== ENCOUNTER 2023-08-13 15:23 | Emergency (ER) | payer MEDICAID, SELFPAY ==
[2023-08-13 15:58] VITALS: BP 119/86; PULSE 63; RESP 18; TEMP 36.6; O2SAT 97; BMI 19.9
--- NOTE | 2023-08-13 15:59 | ED.GENADULT ---
HPI - General Adult General Chief complaint: Dental/Oral Stated complaint: headache for three days Source: patient Mode of arrival: ambulatory Limitations: no limitations History of Present Illness HPI narrative: Patient is a 37-year-old male presenting to the ED with complaint of right upper jaw pain for 2 days and headache for 3 days. States he feels as though his dental pain is causing his headaches. Denies fevers. States called his dentist who recommended patient to be started on antibiotics in the ED and will be seen by dentist on Wednesday. Patient denies any drainage/discharge or swelling. Denies worse headache of life, denies headache worst at onset. MD complaint: dental pain, headache Onset (ago): day(s) Location: head and mouth Severity: severe Quality: aching Pain Consistency: constant Relieving factors: none Exacerbating factors: eating Associated symptoms: denies other symptoms Treatments prior to arrival: none Related Data Previous Rx's Medication Instructions Recorded doxycycline hyclate 100 mg capsule 100 mg PO BID 7 days #14 caps 10/26/21 sennosides 8.6 mg capsule (senna) 8.6 mg PO BEDTIME PRN constipation 10/26/21 #7 caps amoxicillin 875 mg-potassium 1 tab PO Q12H 10 days #20 tabs 02/22/22 clavulanate 125 mg tablet ibuprofen 800 mg tablet 800 mg PO Q8H PRN pain #20 tabs 02/23/22 lidocaine 5 % topical patch 1 patch topical DAILY PRN pain #15 01/30/23 ea clindamycin HCl 150 mg capsule 150 mg PO TID 7 days #21 caps 08/13/23 clindamycin HCl 300 mg capsule 300 mg PO TID 7 days #21 caps 08/13/23 ibuprofen 800 mg tablet 800 mg PO Q8H PRN pain #10 tabs 08/13/23 Allergies Allergy/AdvReac Type Severity Reaction Status Date / Time No Known Allergies Allergy Verified 08/13/23 16:02 Review of Systems Review of Systems: As per HPI. Yes all other systems are reviewed and are negative Constitutional: Constitutional: Reports as per HPI Physical Exam ED Vital Signs: Vital signs have been reviewed and appear to be correct. Blood pressure normal. Heart rate normal. Respiratory rate normal. Temperature normal. Oxygen saturation normal. Const General: cooperative, healthy appearing and no acute distress Orientation/consciousness: oriented to person, oriented to place, oriented to time and patient oriented x3 Limitations: no limitations HENMT Head: Yes normocephalic and Yes atraumatic Ears: external ears normal General nose exam: Normal external nose present Face and sinus: Yes sinuses nontender and Yes face symmetric Mouth: oropharynx normal and moist mucous membranes Teeth and gingiva: poor dentition Teeth image: 1. dental carries, no erythema, edema, fluctuance of gingiva Throat: Yes uvula midline Eyes Pupils: Equal, round and reactive pupils present Neck Neck: Yes normal visual inspection and Yes supple Resp Effort & Inspection: normal respiratory effort and able to speak in complete sentences Auscultation: clear to auscultation bilaterally Cardio Rate: regular rate Rhythm: regular rhythm Heart sounds: S1 normal heart sound present and S2 normal heart sound present Skin General skin exam: elasticity normal and turgor normal Neuro General: oriented to person, oriented to place, oriented to time, patient oriented x3, moves all extremities, no focal motor deficits and CN's II-XI intact bilaterally Cranial nerves: Yes Equal, round and reactive pupils present Cognition (Neuro): normal cognition Extrem General: Yes full ROM, Yes no pedal edema and Yes no calf tenderness Psych Mental Status: mental status grossly normal Affect: normal affect Thought process: Normal thought process present Medical Decision Making Medical Decision Making [facility] Narrative: Patient is a 37-year-old male presenting to the ED with complaint of right upper jaw pain for 2 days and headache for 3 days. On exam patient is awake, A+Ox3, VS WNL, afebrile, normal neurological exam without focal deficits, physical exam findings as above. Given reported symptoms and physical exam findings, initial differential includes dental pain, dental infection, dental abscess. No evidence of Martin's angina. Will treat with clindamycin and ibuprofen and instructed patient to keep appointment with dentist on Wednesday. Return precautions discussed. Patient verbalized understanding of and agreement with plan. Differential Diagnosis Differential Diagnoses: The differential diagnosis associated with the presentation includes As per [facility] External Record Review External record reviewed: Inpatient record, Office record and Outpatient record Prescription Management I considered prescription management with: Pain Medication and Antibiotic Discharge Plan Discharge Clinical Impression: Dental infection Patient Disposition: Home, Self-Care Instructions: Toothache (ED), Mouth Care (ED) Additional Instructions: You were evaluated in the emergency department today for complaint of dental pain. You are being treated for a dental infection with antibiotics. Please complete the full course of antibiotics as prescribed even if your symptoms improve. IT IS IMPORTANT THAT YOU FOLLOW UP WITH YOUR DENTIST. Return to the emergency department if you develop worsening pain, swelling, difficulty swallowing, difficulty breathing, fever, or any other concerning symptoms. Prescriptions: New clindamycin HCl 150 mg capsule 150 mg PO TID 7 Days Qty: 21 0RF Rx Instructions: Take with 300mg caps for total dose of 450mg clindamycin HCl 300 mg capsule 300 mg PO TID 7 Days Qty: 21 0RF Rx Instructions: Take with 150mg caps for total dose of 450mg ibuprofen 800 mg tablet 800 mg PO Q8H PRN (Reason: pain) Qty: 10 0RF No Action doxycycline hyclate 100 mg capsule 100 mg PO BID 7 Days Qty: 14 0RF senna 8.6 mg capsule 8.6 mg PO BEDTIME PRN (Reason: constipation) Qty: 7 0RF amoxicillin-pot clavulanate 875-125 mg tablet 1 tab PO Q12H 10 Days Qty: 20 0RF ibuprofen 800 mg tablet 800 mg PO Q8H PRN (Reason: pain) Qty: 20 0RF lidocaine 5 % adhesive patch,medicated 1 patch topical DAILY PRN (Reason: pain) Qty: 15 0RF Rx Instructions: leave on most painful area for up to 12 hrs
== END 2023-08-13 16:23 | disposition home or self-care (01) ==
PROVIDERS: Emergency Provider Emergency Medicine Emergency Medical Services
DX: K04.7 Periapical abscess without sinus (principal)
CPT/HCPCS: 99282; 99283

== ENCOUNTER 2023-10-06 11:12 | Emergency (ER) | payer MEDICAID, SELFPAY ==
--- NOTE | ~2023-10-06 | XR_ITS ---
EXAMINATION: XR ABDOMEN KUB CLINICAL INDICATION: Question constipation. Lower abdominal pain. COMPARISON: Abdominal radiograph dated 10/26/2021. TECHNIQUE: AP views of the abdomen. FINDINGS: Mild stool burden, decreased when compared to the prior examination. Nondistended bowel gas pattern. No acute osseous abnormality. Lizy within the pelvis. XR/XR KUB IMPRESSION: Mild stool burden, decreased when compared to the prior examination.
[2023-10-06 11:17] VITALS: BP 113/82; PULSE 101; RESP 20; TEMP 36.8; O2SAT 100; BMI 19.7
--- NOTE | 2023-10-06 11:20 | ED_ITS ---
HPI - General Adult General Chief complaint: Abdominal Pain Stated complaint: Lower abd pain/Covid+ last week Time Seen by Provider: 10/06/23 15:47 Source: patient Mode of arrival: ambulatory Limitations: no limitations History of Present Illness HPI narrative: Patient is a 37 year old assigned male at with a history of suboxone use presenting to the emergency department today with abdominal pain. Patient states that over the last few days he has felt abdominal pain and is concerned he is constipated. Patient also states that he is having some pain with urination. Patient denies any dizziness, lightheadedness, nausea, vomiting, fever, chills, blurry vision, double vision, loss of vision, chest pain, difficulty breathing, shortness of breath, back pain, night sweats, increased urinary urgency, blood in his urine or stool, syncope or a near syncopal episode, recent trauma or falls, bowel incontinence, bladder incontinence, bowel retention, bladder retention, or any other complaints at this time. Onset (ago): day(s) (2) Location: abdomen Severity: mild Severity scale (1-10): 2 Relieving factors: none Exacerbating factors: none Associated symptoms: denies other symptoms Treatments prior to arrival: none Related Data Previous Rx's Medication Instructions Recorded doxycycline hyclate 100 mg capsule 100 mg PO BID 7 days #14 caps 10/26/21 sennosides 8.6 mg capsule (senna) 8.6 mg PO BEDTIME PRN constipation 10/26/21 #7 caps amoxicillin 875 mg-potassium 1 tab PO Q12H 10 days #20 tabs 02/22/22 clavulanate 125 mg tablet ibuprofen 800 mg tablet 800 mg PO Q8H PRN pain #20 tabs 02/23/22 lidocaine 5 % topical patch 1 patch topical DAILY PRN pain #15 01/30/23 ea clindamycin HCl 150 mg capsule 150 mg PO TID 7 days #21 caps 08/13/23 clindamycin HCl 300 mg capsule 300 mg PO TID 7 days #21 caps 08/13/23 ibuprofen 800 mg tablet 800 mg PO Q8H PRN pain #10 tabs 08/13/23 magnesium citrate 37.5 ml PO BID PRN constipation 10/06/23 #296 mL Allergies Allergy/AdvReac Type Severity Reaction Status Date / Time No Known Allergies Allergy Verified 11/24/23 16:02 Review of Systems Constitutional: Constitutional: Reports no additional constitutional complaints, Denies chills, Denies fever(s) and Denies night sweats Eyes: Eyes: Reports no additional eye complaints, Denies blurry vision, Denies change in vision, Denies diplopia, Denies eye discharge, Denies loss of vision and Denies eye pain ENT: Denies dizziness Cardiovascular: Cardiovascular: Reports no additional cardiovascular complaints, Denies chest pain, Denies lightheadedness, Denies Loss of Consciousness and Denies dyspnea Respiratory: Respiratory: Reports no additional respiratory complaints and Denies dyspnea Gastrointestinal: Gastrointestinal: Reports no additional gastrointestinal complaints, Reports abdominal pain, Denies melena, Denies hematochezia, Denies change in bowel habits, Denies change in stool character and Reports constipation Genitourinary: Genitourinary: Reports no additional male genitourinary complaints, Denies hematuria, Denies oliguria, Denies difficulty urinating, Reports dysuria, Denies urinary hesitancy, Denies urinary incontinence and Denies urinary urgency Musculoskeletal: Musculoskeletal: Reports no additional musculoskeletal co mplaints, Denies numbness and Denies tingling Neurologic: Denies dizziness, Denies loss of vision, Denies numbness and Denies tingling Psychiatric: Psychiatric: Reports no additional psychiatric complaints Endocrine: Endocrine: Reports no additional endocrine complaints Hematologic/Lymphatic: Hematologic/Lymphatic: Reports no additional hematologic/lymphatic complaints Allergic/Immunologic: Allergic/Immunologic: Reports no additional allergic/immunologic complaints [facility] Past Medical History Attestation statement: The following information was validated with the patient. Source: old records reviewed and nursing notes reviewed Onset Date is defined in the Problem List Problems that require an onset date and time if occurred within 24 hrs of arrival to the ED Aortic Dissection and Rupture; Neurologic impairment; Cardiopulmonary Arrest; Endotracheal Intubation; Insertion or Replacement of Mechanical Circulatory Assist Device Social History Social History Advance Directives: No Advance Directives Information Provided: No Physical Exam ED Vital Signs: Vital Signs - 24 hr 10/06/23 11:17 10/06/23 13:19 Temperature 98.3 F 98.5 F Pulse Rate 101 H 75 Respiratory Rate 20 20 Blood Pressure 113/82 121/78 Pulse Oximetry 100 99 Oxygen Delivery Method Room Air Room Air BMI result Body Mass Index 19.7 Const General: cooperative, no acute distress, alert and awake Nutritional Appearance: well nourished Orientation/consciousness: patient oriented x3 Limitations: no limitations HENMT Head: Yes normal to inspection and Yes atraumatic Ears: hearing grossly normal bilaterally and external ears normal General nose exam: Normal external nose present, no nasal discharge noted and no epistaxis Face and sinus: Yes normal facial exam, No abrasion and No laceration Mouth: Normal oral and palatal mucosa present, no drooling and no muffled voice Eyes General: appearance normal, both eyes and all related structures Periorbital: periorbital findings normal Eyelids: Yes eyelids normal Conjunctivae: conjunctivae normal Pupils: Equal, round and reactive pupils present EOM: EOMs intact bilaterally Neck Neck: Yes normal visual inspection, Yes full ROM and Yes no lymphadenopathy Chest Chest palpation & inspection: normal inspection of the chest Resp Effort & Inspection: normal respiratory effort and able to speak in complete sentences GI Inspection: Yes normal to inspection Palpation (GI): Soft to palpation, not firm, nontender, no guarding and not r igid Neuro General: patient oriented x3 and moves all extremities Cranial nerves: Yes Equal, round and reactive pupils present Cognition (Neuro): normal cognition Motor exam (neuro): 5/5 motor strength present throughout Sensory Exam: Normal double simultaneous stimulation for sensation Coordination: [id number] test normal Extrem General: Yes normal to inspection, Yes full ROM and Yes capillary refill normal Psych Appearance: grossly normal Mental Status: mental status grossly normal Affect: normal affect Attitude: cooperative Thought process: Normal thought process present Thought content: Normal thought content present Insight: Good insight present (Psych) Course Course Course Narrative: RME:?37 yo male here w/ dysuria and lower abdominal pain x Last urinated yesterday. Sexually active with girlfriend. Denies concern for STI. Also endorses consitpation x6 months, worsening over the last few weeks. straining more often. no hematochezia, melana. last BM yesterday- hard stool. Plan for UA, CT/NG, KUB. Full HPI, ROS and PE to be performed by the primary ED provider. Medical Decision Making Medical Decision Making MDM Narrative: Patient is a 37 year old assigned male at with a history of suboxone use presenting to the emergency department today with abdominal pain and painful urination. Patient's physical exam was unremarkable. Patient's urine showed no acute process. Patient's KUB x-ray showed constipation. I explained my physical exam findings as well as all test results to the patient. I answered all questions asked by the patient. I stressed the importance of the patient taking his medication as prescribed. I stressed the importance of the patient following up with his primary care provider. I stressed the importance of the patient returning to the emergency department immediately if his symptoms were to worsen or if he were to develop any dizziness, shortness of breath, difficulty breathing, chest pain, blurry vision, loss of vision, nausea, vomiting, abd ominal pain, fever, chills, back pain, or any other complaints. Patient verbalized agreement and understanding with this treatment plan and discharge. Differential Diagnosis Differential Diagnoses: The differential diagnosis associated with the presentation includes Constipation Dysuria UTI Anxiety Admission/Observation Consideration of admission/observation: Escalation of care including admission/observation considered Patient would have been admitted to the hospital had his work up had any findings where hospital admission was appropriate and his clinical presentation warranted hospital admission. Lab Data [facility] Lab Attestation statement: I reviewed the patient's lab results. My interpretation of these results are in the [facility] Rationale portion of this note. Labs: Lab Results 10/06/23 Range/Units 11:33 Urine Color Yellow Urine Appearance Clear Urine pH 6.0 (5.0-9.0) Ur Specific [place] <= 1.005 (1.005-1.025) Urine Protein Negative (Neg-Trace) mg/dL Urine Glucose (UA) Negative (Negative) mg/dL Urine Ketones Negative (Negative) mg/dL Urine Blood Negative (Negative) Urine Nitrite Negative (Negative) Ur Leukocyte Esterase Negative (Negative) Chlam trachomat DNA PCR NOT DETECTED (Not Detect.) N.gonorrhoeae DNA (PCR) NOT DETECTED (Not Detect.) Independent Interpretation I performed an independent interpretation of an: Plain X-Ray Interpretation: My interpretation is in agreement with the radiologist's impression of this imaging study. EXAMINATION: XR ABDOMEN KUB CLINICAL INDICATION: Question constipation. Lower abdominal pain. COMPARISON: Abdominal radiograph dated 10/26/2021. TECHNIQUE: AP views of the abdomen. FINDINGS: Mild stool burden, decreased when compared to the prior examination. Nondistended bowel gas pattern. No acute osseous abnormality. Lizy within the pelvis. XR/XR KUB IMPRESSION: Mild stool burden, decreased when compared to the prior examination. Dictated By: Giovani Cornelius MD Signed By: Electronically signed by Giovani Cornelius MD 10/06/23 7015 Radiology Impression Discussion of test interpretation with radiology: I have reviewed the radiologist's reading. Discharge Plan Discharge Clinical Impression: Constipation Patient Disposition: Home, Self-Care Instructions: Constipation (DC) Additional Instructions: Follow up with your primary care provider. Return to the emergency department immediately if your symptoms worsen or if you develop any dizziness, shortness of breath, difficulty breathing, chest pain, blurry vision, loss of vision, nausea, vomiting, abdominal pain, fever, chills, back pain, or any other complaints. Prescriptions: New magnesium citrate Solution 37.5 ml PO BID PRN (Reason: constipation) Qty: 296 0RF No Action doxycycline hyclate 100 mg capsule 100 mg PO BID 7 Days Qty: 14 0RF senna 8.6 mg capsule 8.6 mg PO BEDTIME PRN (Reason: constipation) Qty: 7 0RF amoxicillin-pot clavulanate 875-125 mg tablet 1 tab PO Q12H 10 Days Qty: 20 0RF ibuprofen 800 mg tablet 800 mg PO Q8H PRN (Reason: pain) Qty: 20 0RF lidocaine 5 % adhesive patch,medicated 1 patch topical DAILY PRN (Reason: pain) Qty: 15 0RF Rx Instructions: leave on most painful area for up to 12 hrs clindamycin HCl 150 mg capsule 150 mg PO TID 7 Days Qty: 21 0RF Rx Instructions: Take with 300mg caps for total dose of 450mg clindamycin HCl 300 mg capsule 300 mg PO TID 7 Days Qty: 21 0RF Rx Instructions: Take with 150mg caps for total dose of 450mg ibuprofen 800 mg tablet 800 mg PO Q8H PRN (Reason: pain) Qty: 10 0RF Referrals: [facility] [Provider Group] (Call to establish and follow up with a primary care provider. If you already have a primary care provider, please follow up with them.) [facility] [place] [facility] [Provider Group] (Call to establish and follow up with a primary care provider. If you already have a primary care provider, please follow up with them.) [facility] [place] [facility],Jose Rafael [Provider Group] (Call to establish and follow up with a primary care provider. If you already have a primary care provider, please follow up with them.) Stand Alone Forms: Work/School Release Interventions: ED Discharge Assessment Last Done: 10/06/23 16:05 Discharge Date/Time: 10/06/23 16:06 Print Language: Swedish
[2023-10-06 11:44] LABS: Appearance Urine Clear; Color Urine Yellow; Glucose Urine UA Negative (Negative); Leukocyte Esterase Urine Negative (Negative); Nitrite Urine Negative (Negative); Specific Gravity - Urine <= 1.005 (1.005-1.025); Urine Blood Negative (Negative); Urine Ketones Negative (Negative); Urine Protein Negative (Neg-Trace)
[2023-10-06 13:19] VITALS: BP 121/78; PULSE 75; RESP 20; TEMP 36.9; O2SAT 99
[2023-10-06 13:36] LABS: CT PCR NOT DETECTED (Not Detect.); NG PCR NOT DETECTED (Not Detect.)
== END 2023-10-06 16:06 | disposition home or self-care (01) ==
PROVIDERS: Physician Assistant Medical; Emergency Provider Emergency Medicine
DX: K59.00 Constipation, unspecified (principal); R10.30 Lower abdominal pain, unspecified; R30.0 Dysuria
CPT/HCPCS: 0353U; 74018; 81003; 99283

== ENCOUNTER 2024-02-22 18:22 | Emergency (ER) | payer MEDICAID, SELFPAY ==
--- NOTE | ~2024-02-22 | XR_ITS ---
EXAMINATION: XR RIBS, RIGHT CLINICAL INFORMATION: Fall. Rib pain. COMPARISON: None available. TECHNIQUE: 3 views of the right ribs were obtained. FINDINGS: Lungs are clear. No consolidation, pneumothorax, or pleural effusion. The cardiomediastinal silhouette and pulmonary vasculature are normal. Osseous structures are unremarkable. Ribs are intact. No fractures are identified. XR/XR ribs RT min 3V w CXR1V IMPRESSION: Unremarkable examination.
--- NOTE | ~2024-02-22 | CT_ITS ---
EXAMINATION: CT HEAD WITHOUT CONTRAST CT CERVICAL SPINE WITHOUT CONTRAST CLINICAL INFORMATION: Fall. Neck pain. COMPARISON: CTA neck from 02/22/2022. TECHNIQUE: Contiguous axial imaging was performed from the skull base to vertex without intravenous administration of contrast. Contiguous axial imaging was performed from the upper chest through the skull base without intravenous administration of contrast. Coronal and sagittal reformats were obtained at the acquisition workstation. This CT examination was performed using dose optimization techniques as appropriate, variously including the following: *Automated exposure control. *Adjustment of mA and/or kV according to patient size (this includes techniques or standardized protocols for targeted exams where dose is matched to indication/reason for exam; i.e. extremities or head). *Use of iterative reconstruction technique. DLP: 912 mGy-cm FINDINGS: Head: There is no evidence of acute intracranial hemorrhage or edematous territorial infarction. Mosley-white matter differentiation is preserved. There is no abnormal attenuation within the brain parenchyma. Mild prominence of the body of the right lateral ventricle without overt evidence of obstruction. Otherwise, the ventricles are normal in morphology and size. No evidence for obstructive hydrocephalus. No abnormal mass effect or midline shift. No extra-axial fluid collections. No acute soft tissue or osseous abnormalities. Mild mucosal thickening of the paranasal sinuses. The mastoid air cells and middle ear cavities are clear. Chronic depression of the right lamina papyracea. Cervical Spine: The atlantooccipital and atlantoaxial articulations remain well aligned. Straightening of the normal cervical lordosis. Otherwise, there is anatomic alignment of the vertebral bodies and posterior elements. No evidence of acute fracture or subluxation. Chronic degenerative loss of C4-C7 vertebral body heights. Moderate degenerative disc disease from C3-C7. Facet and uncovertebral joint arthropathy leads to osseous encroachment on the neural foramina at C6-C7. There is no prevertebral soft tissue swelling. The thyroid gland and remaining cervical soft tissues are within normal limits. The lung apices demonstrate no abnormalities. CT/CT cervical spine wo IV con IMPRESSION: 1. No evidence of acute intracranial hemorrhage or edematous territorial infarction. 2. No evidence of acute fracture or traumatic subluxation of the cervical spine. Moderate multilevel degenerative spondyloarthropathy of the cervical spine.
--- NOTE | ~2024-02-22 | XR_ITS ---
EXAMINATION: XR SHOULDER, RIGHT CLINICAL INFORMATION: Fall. Pain. COMPARISON: None available. TECHNIQUE: Three views of the right shoulder. FINDINGS: The bones and soft tissues are normal. No fracture. Glenohumeral and acromioclavicular alignment is anatomic with normal joint space. No abnormal soft tissue calcifications. XR/XR shoulder RT min 2V IMPRESSION: Normal right shoulder.
[2024-02-22 18:24] VITALS: BP 124/80; PULSE 85; RESP 16; TEMP 36.7; O2SAT 99; BMI 20.4
[2024-02-22 20:49] VITALS: BP 109/79; PULSE 58; RESP 16; TEMP 36.6; O2SAT 99
--- NOTE | 2024-02-22 22:20 | ED_ITS ---
HPI - Extremity Problem General Chief complaint: Extremity Injury, Upper Stated complaint: R shoulder pain Time Seen by Provider: 02/22/24 21:56 Source: patient, RN notes reviewed and old records reviewed Mode of arrival: ambulatory Limitations: no limitations History of Present Illness ED Provider: Roberta WADDELL Narrative: 38-year-old male presents for evaluation of right chest wall pain and shoulder pain. Patient reports he was at work 3 days ago He states that a motorcycle engine fell onto the right chest wall Patient states his right arm was raised up at the time He denies any injury to the head or neck. He states that the pain in his right chest wall radiates up towards his shoulder and his right side of his neck His pain is worse if he moves his right arm He has used a lidocaine patch with minimal improvement No other complaints or concerns at this time Related Data Previous Rx's ?Medication ?Instructions ?Recorded doxycycline hyclate 100 mg capsule 100 mg PO BID 7 days #14 caps 10/26/21 sennosides 8.6 mg capsule (senna) 8.6 mg PO BEDTIME PRN constipation 10/26/21 #7 caps amoxicillin 875 mg-potassium 1 tab PO Q12H 10 days #20 tabs 02/22/22 clavulanate 125 mg tablet ibuprofen 800 mg tablet 800 mg PO Q8H PRN pain #20 tabs 02/23/22 lidocaine 5 % topical patch 1 patch topical DAILY PRN pain #15 01/30/23 ea clindamycin HCl 150 mg capsule 150 mg PO TID 7 days #21 caps 08/13/23 clindamycin HCl 300 mg capsule 300 mg PO TID 7 days #21 caps 08/13/23 ibuprofen 800 mg tablet 800 mg PO Q8H PRN pain #10 tabs 08/13/23 magnesium citrate 37.5 ml PO BID PRN constipation 10/06/23 #296 mL cyclobenzaprine 10 mg tablet 10 mg PO TID PRN muscle spasm #12 02/22/24 tabs naproxen 500 mg tablet 500 mg PO BID PRN pain #20 tabs 02/22/24 Allergies Allergy/AdvReac Type Severity Reaction Status Date / Time No Known Allergies Allergy Verified 02/22/24 18:27 Review of Systems Constitutional: Constitutional: Denies headache(s) Eyes: Eyes: Denies blurry vision ENT: Denies headache(s) and Reports neck pain Cardiovascular: Cardiovascular: Reports chest pain (Right chest wall pain) and Denies dyspnea Respiratory: Respiratory: Denies cough and Denies dyspnea Gastrointestinal: Gastrointestinal: Denies abdominal pain Musculoskeletal: Musculoskeletal: Reports back pain and Reports neck pain Integumentary/Breasts: Skin/Breast: Denies rash Neurologic: Denies headache(s) [facility] Social History Social History Advance Directives: No Advance Directives Information Provided: No Do you have a plan to hurt others: No Plan Physical Exam Vital Signs: Vital Signs: Last Vital Signs Temp 97.8 F 02/22/24 22:32 Pulse 58 02/22/24 22:32 Resp 16 02/22/24 22:32 BP 109/79 02/22/24 22:32 Pulse Ox 99 02/22/24 22:32 O2 Del Method Room Air 02/22/24 22:32 BMI result Body Mass Index 20.4 Const: General: healthy appearing, comfortable, no acute distress, alert and awake Nutritional Appearance: well nourished Orientation/consciousness: patient oriented x3 HEENT: Head: Yes normocephalic and Yes atraumatic Eyes: Eyelids: Yes eyelids normal Conjunctivae: conjunctivae normal Sclerae: sclerae normal Corneas: corneas normal Pupils: Equal, round and reactive pupils present EOM: EOMs intact bilaterally Neck: Neck: Yes full ROM Chest: Chest palpation & inspection: normal inspection of the chest, no crepitus and localized rib tenderness with anteroposterior compression Resp: Effort & Inspection: normal respiratory effort, able to speak in complete sentences and not labored GI: Inspection: No distended Palpation (GI): Soft to palpation, not firm, nontender, no guarding and not rigid Skin: General skin exam: elasticity normal Neuro: General: patient oriented x3 Cranial nerves: Yes Equal, round and reactive pupils present and Yes Bilaterally intact EOM present Cognition (Neuro): normal cognition Medical Decision Making Medical Decision Making MDM Narrative: 38-year-old male presents for evaluation of right chest wall pain. This was after a heavy angina fell onto his right chest wall. He had imaging in triage ordered that included a CT scan of the brain and cervical spine. As well as rib x-ray and right shoulder x-ray. Imaging was reviewed without any acute traumatic injuries. Discussed the possibility of occult fracture with the patient. However his vital signs are stable, he is well-appearing. His pain is exacerbated with movement. There is no crepitus on exam. Patient be discharged with symptomatic treatment for right chest wall contusion Differential Diagnosis Differential Diagnoses: The differential diagnosis associated with the presentation includes Chest wall contusion Rib fracture Pneumothorax Shoulder sprain Shoulder fracture Independent Interpretation I performed an independent interpretation of an: Plain X-Ray Interpretation: No obvious displaced rib fracture No obvious fracture or dislocation of the right shoulder Radiology Impression Discussion of test interpretation with radiology: I have reviewed the radiologis t's reading. Radiologist Impression: IMPRESSION: 1. No evidence of acute intracranial hemorrhage or edematous territorial infarction. 2. No evidence of acute fracture or traumatic subluxation of the cervical spine. Moderate multilevel degenerative spondyloarthropathy of the cervical spine. Discharge Plan Discharge Clinical Impression: Right-sided chest wall pain Patient Disposition: Home, Self-Care Instructions: Chest Wall Pain (ED) Additional Instructions: Your x-rays as well as her CT scans did not show any traumatic injuries. Specifically there are no rib fractures Very subtle rib fractures can occasionally be missed on x-ray The treatment would just be pain management. Use naproxen as needed for pain. Use cyclobenzaprine as needed for muscle spasms This may make you sleepy, did not drink alcohol or drive after taking it Prescriptions: New naproxen 500 mg tablet 500 mg PO BID PRN (Reason: pain) Qty: 20 0RF cyclobenzaprine 10 mg tablet 10 mg PO TID PRN (Reason: muscle spasm) Qty: 12 0RF No Action doxycycline hyclate 100 mg capsule 100 mg PO BID 7 Days Qty: 14 0RF senna 8.6 mg capsule 8.6 mg PO BEDTIME PRN (Reason: constipation) Qty: 7 0RF amoxicillin-pot clavulanate 875-125 mg tablet 1 tab PO Q12H 10 Days Qty: 20 0RF ibuprofen 800 mg tablet 800 mg PO Q8H PRN (Reason: pain) Qty: 20 0RF lidocaine 5 % adhesive patch,medicated 1 patch topical DAILY PRN (Reason: pain) Qty: 15 0RF Rx Instructions: leave on most painful area for up to 12 hrs clindamycin HCl 150 mg capsule 150 mg PO TID 7 Days Qty: 21 0RF Rx Instructions: Take with 300mg caps for total dose of 450mg clindamycin HCl 300 mg capsule 300 mg PO TID 7 Days Qty: 21 0RF Rx Instructions: Take with 150mg caps for total dose of 450mg ibuprofen 800 mg tablet 800 mg PO Q8H PRN (Reason: pain) Qty: 10 0RF magnesium citrate Solution 37.5 ml PO BID PRN (Reason: constipation) Qty: 296 0RF Interventions: ED Discharge Assessment Last Done: 02/22/24 22:32 Discharge Date/Time: 02/22/24 22:33 Print Language: Telugu
[2024-02-22 22:32] VITALS: BP 109/79; PULSE 58; RESP 16; TEMP 36.6; O2SAT 99
== END 2024-02-22 22:33 | disposition home or self-care (01) ==
PROVIDERS: Emergency Provider Internal Medicine
DX: R07.89 Other chest pain (principal); M25.511 Pain in right shoulder
CPT/HCPCS: 70450; 71101; 72125; 73030; 99284

== ENCOUNTER 2024-09-29 11:50 | Outpatient (REF) | payer MEDICAID, SELFPAY ==
[2024-09-29 13:19] LABS: Alanine Aminotransferase 12 U/L (0-40); Albumin Level 4.4 g/dL (3.5-5.0); Alkaline Phosphatase 79 U/L (39-117); Aspartate Amino Transferase 16 U/L (5-37); Bilirubin Direct 0.1 mg/dL (0.0-0.5); Bilirubin Total 0.4 mg/dL (0.0-1.0)
[2024-09-30 08:33] LABS: Hepatitis A Antibody IgG REACTIVE (Nonreactive); ~Hepatitis A Antibody IgG 8.39 S/CO (0.00-0.99)
[2024-09-30 08:37] LABS: HBS Num1 323.67 mIU/mL (0-7.99); HBc Num1 0.08 S/CO (0.00-0.79); HBsAGNum1 0.32 S/CO (0.00-0.99); HIV AB/AG Nonreactive (Nonreactive); HIV Num 1 0.05 S/CO (0.00-0.99); Hepatitis B Core Antibody Nonreactive (Nonreactive); Hepatitis B Surface Antigen Negative (Negative); ~HepC Num1 15.16 S/CO (0.00-0.79); ~Hepatitis B Surface Antibody REACTIVE (Nonreactive); ~Hepatitis C Antibody Reactive (Nonreactive)
[2024-10-02 09:19] LABS: TS Negative Control Passed; TS Panel A 0; TS Panel B 0; TS Positive Control Passed; TSpotTB Negative (Negative)
[2024-10-02 18:18] LABS: RPR Rapid Plasma Reagin NON-REACTIVE (NON-REACTIVE)
[2024-10-03 14:17] LABS: HCV Log PCR <1.18 NOT DETECTED Log IU/mL (NOT DETECTED); HepC Viral Load <15 NOT DETECTED IU/mL (NOT DETECTED)
== END 2024-09-29 11:51 | disposition home or self-care (01) ==
LOC: HO.HHCL 11:50
PROVIDERS: Visit Provider Emergency Medicine
DX: F11.20 Opioid dependence, uncomplicated (principal); R30.0 Dysuria; Z11.59 Encounter for screening for other viral diseases; Z72.89 Other problems related to lifestyle
CPT/HCPCS: 36415; 80076; 86481; 86592; 86704; 86706; 86708; 86803; 87086; 87088; 87186; 87340; 87389; 87522

== ENCOUNTER 2024-11-14 16:54 | Emergency (ER) | payer MEDICAID, SELFPAY ==
--- NOTE | ~2024-11-14 | XR_ITS ---
CLINICAL HISTORY: chest pain, cough 2 view chest x-ray Comparison: CR - CHEST 2 VIEWS - 12/26/18 00:02 EDT Findings: No consolidation or effusion. Normal size heart. No acute fracture. IMPRESSION: 1. No acute findings. This document has been electronically signed by: Keith Lanza MD on 11/14/2024 18:05:26
--- NOTE | ~2024-11-14 | XR_ITS ---
CLINICAL HISTORY: pain 1 view abdomen Comparison: CR/SR - XR KUB - 10/06/23 11:45 EST Findings: No pneumoperitoneum or pneumatosis. No abnormal calcifications. No acute fractures. IMPRESSION: Normal bowel gas pattern This document has been electronically signed by: Bryce Chapman MD on 11/14/2024 23:19:35
[2024-11-14 17:17] VITALS: BP 128/94; PULSE 89; RESP 16; TEMP 36.8; O2SAT 100; BMI 18.5
--- NOTE | 2024-11-14 17:17 | ED.GENADULT ---
HPI - General Adult General Chief complaint: Back Pain/Injury Stated complaint: sharp back pain Time Seen by Provider: 11/14/24 22:29 Source: patient Limitations: no limitations History of Present Illness ED Provider: Sonia Ratliff PA-C HPI narrative: 38-year-old male presents with multiple complaints. Patient states he was recently sick with influenza. Since he has had upper abdominal discomfort, constipation and diffused chest and back pain. The chest and back pain are worse with movement and deep breathing. Denies abdominal distention, nausea, vomiting, inability to pass flatus. Related Data Previous Rx's ?Medication ?Instructions ?Recorded doxycycline hyclate 100 mg capsule 100 mg PO BID 7 days #14 caps 10/26/21 sennosides 8.6 mg capsule (senna) 8.6 mg PO BEDTIME PRN constipation 10/26/21 #7 caps amoxicillin 875 mg-potassium 1 tab PO Q12H 10 days #20 tabs 02/22/22 clavulanate 125 mg tablet ibuprofen 800 mg tablet 800 mg PO Q8H PRN pain #20 tabs 02/23/22 lidocaine 5 % topical patch 1 patch topical DAILY PRN pain #15 01/30/23 ea clindamycin HCl 150 mg capsule 150 mg PO TID 7 days #21 caps 08/13/23 clindamycin HCl 300 mg capsule 300 mg PO TID 7 days #21 caps 08/13/23 ibuprofen 800 mg tablet 800 mg PO Q8H PRN pain #10 tabs 08/13/23 magnesium citrate 37.5 ml PO BID PRN constipation 10/06/23 #296 mL cyclobenzaprine 10 mg tablet 10 mg PO TID PRN muscle spasm #12 02/22/24 tabs naproxen 500 mg tablet 500 mg PO BID PRN pain #20 tabs 02/22/24 methocarbamol 750 mg tablet 750 mg PO Q8H PRN pain, moderate 11/14/24 #10 tabs Allergies Allergy/AdvReac Type Severity Reaction Status Date / Time No Known Allergies Allergy Verified 11/14/24 17:19 Review of Systems Review of Systems: Yes all other systems are reviewed and are negative Constitutional: Constitutional: Denies fatigue and Denies fever(s) Cardiovascular: Cardiovascular: Reports chest pain and Denies dyspnea Respiratory: Respiratory: Reports cough and Denies dyspnea Gastrointestinal: Gastrointestinal: Reports abdominal pain, Reports constipation, Denies diarrhea, Denies nausea and Denies vomiting Musculoskeletal: Musculoskeletal: Reports back pain Endocrine: Endocrine: Denies fatigue [facility], [facility] Past Medical History Attestation statement: The following information was validated with the patient. Social History Social History Advance Directives: No Advance Directives Information Provided: No Do you have a plan to hurt others: No Plan Physical Exam ED Vital Signs: Vital Signs - 24 hr 11/14/24 17:17 11/14/24 22:41 Temperature 98.3 F 98.1 F Pulse Rate 89 65 Respiratory Rate 16 20 Blood Pressure 128/94 H 132/77 Pulse Oximetry 100 98 Oxygen Delivery Method Room Air Room Air BMI result Body Mass Index 18.5 Const Other: alert, Orientation/consciousness: patient oriented x3 Resp Effort & Inspection: normal respiratory effort Cardio Other: normal peripheral perfusion GI Other: soft, nondistended nontender no guarding Skin Other: warm dry no rash Neuro General: patient oriented x3, gait normal, no focal motor deficits and CN's II-XI intact bilaterally Psych Other: calm cooperative Course Course Course Narrative: This is a rapid medical exam performed by Johnny Aldridge NP: Additional HPI, ROS, PE not included below will be deferred to primary provider. Patient is a 38-year-old male presenting with complaint of severe back pain. States he was recently sick with flu-like symptoms. Was taking Dayquil, Tylenol, ibuprofen. Since he stopped those meds he has had back pain radiating to his epigastric/chest area x 6 days. Worse with coughing, deep inspiration. Plan: labs, CXR Medications Administered Discontinued Medications Generic Name Dose Route Start Last Admin Trade Name Freq PRN Reason Stop Dose Admin Ketorolac Tromethamine 15 mg 11/14/24 22:36 11/14/24 22:54 Ketorolac Tromethamine 15 Mg/Ml Vial IM 11/14/24 22:37 15 mg ONCE ONE Administration Methocarbamol 750 mg 11/14/24 22:36 11/14/24 22:53 Methocarbamol 750 Mg Tablet PO 11/14/24 22:37 750 mg ONCE ONE Administration Medical Decision Making Medical Decision Making MDM Narrative: 38-year-old male presents with multiple complaints. Patient states he was recently sick with influenza. Since he has had upper abdominal discomfort, constipation and diffused chest and back pain. The chest and back pain are worse with movement and deep breathing. Denies abdominal distention, nausea, vomiting, inability to pass flatus. No chronic issues History: Per patient I have considered the following differential diagnoses: Constipation, bowel obstruction, dissection, costochondritis, pneumonia, musculoskeletal strain Plan: Screening labs including a viral panel, EKG and chest x-ray were obtained from triage. adding a KUB to assess stool burden. He has no obstructive symptoms to suggest a bowel obstruction, he does not warrant a CT scan. In regard to his diffuse chest and back pain, given recent viral syndrome, he likely has costochondritis. There were no ischemic changes on the EKG. Thought about dissection given belly back and chest pain, however he is not overtly hypertensive, he is neurovascularly intact, radial pulses are equal. He does not warrant a day section study. I have independently reviewed the following tests: Labs: no leukocytosis, not anemic, no electrolyte abnormality, viral panel negative EKG: normal sinus rhythm, rate 89, no ischemic changes no ectopy QTC 416 Chest x-ray: Findings: No consolidation or effusion. Normal size heart. No acute fracture. IMPRESSION: 1. No acute findings. KUB: Findings: No pneumoperitoneum or pneumatosis. No abnormal calcifications. No acute fractures. IMPRESSION: Normal bowel gas pattern I have reviewed myself he does have some degree of stool burden Lab Data 11/14/24 17:32 11/14/24 17:32 Labs: Lab Results 11/14/24 Range/Units 17:32 WBC 4.6 L (4.8-10.8) X10*3/uL RBC 3.98 L (4.60-5.80) X10*6/uL Hgb 12.2 L (14.0-18.0) g/dl Hct 35.3 L (42.0-52.0) % MCV 88.7 (80.0-98.0) fL MCH 30.7 (27.0-33.0) pg MCHC 34.6 (31.0-36.0) g/dl RDW 13.2 (11.0-16.0) % Plt Count 274 D (160-400) X10*3/uL MPV 9.0 L (9.4-12.4) fL Immature Gran % (Auto) 0.4 (0.0-0.4) % Neut % (Auto) 61.0 (45-73) % Lymph % (Auto) 25.5 (20-40) % [place] % (Auto) 12.3 H (2-11) % Eos % (Auto) 0.2 (0-4) % Baso % (Auto) 0.6 (0-2) % Lymph # (Auto) 1.2 (1.2-4.9) X10*3/uL [place] # (Auto) 0.6 (0.1-1.2) X10*3/uL Eos # (Auto) 0.0 (0.0-0.4) X10*3/uL Baso # (Auto) 0.0 (0.0-0.2) X10*3/uL Abs Immat Gran (auto) 0.02 (0.00-0.03) X10*3/uL Absolute Neuts (auto) 2.8 (2.0-8.3) x10*3/uL Absolute Nucleated RBC 0.000 (0.0-0.012) X10*3/uL Nucleated RBC % (auto) 0.0 (0.0-0.2) /100WBC PT 11.6 (10.9-12.4) SEC INR 1.0 (0.9-1.1) Sodium 142 (135-145) mmol/L Potassium 4.0 (3.3-5.1) mmol/L Chloride 108 (96-108) mmol/L Carbon Dioxide 27 (22-29) mmol/L Anion Gap 11 L (12-20) BUN 9 (9-16) mg/dL Creatinine 0.67 (0.5-1.4) mg/dL Estim Creat Clear Calc 113.1 Estimated GFR > 60 Random Glucose 95 (60-115) mg/dL Calcium 9.4 (8.4-10.2) mg/dL Total Bilirubin 0.3 (0.0-1.0) mg/dL AST 20 (5-37) U/L ALT 10 (0-40) U/L Alkaline Phosphatase 80 (39-117) U/L Troponin I High Sens < 2.7 (<3.5-35.0) ng/L Total Protein 8.1 H (6.5-8.0) g/dL Albumin 4.3 (3.5-5.0) g/dL Influenza Type A (PCR) NEGATIVE (Negative) Influenza Type B (PCR) NEGATIVE (Negative) RSV RNA Qual (PCR) NEGATIVE (Negative) SARS-CoV-2 RNA (RT-PCR) NEGATIVE (Negative) Discharge Plan Discharge Clinical Impression: Costochondritis, Constipation Patient Disposition: Home, Self-Care Instructions: Constipation (ED), Costochondritis (ED) Additional Instructions: all of your screening labs were normal, the viral panel is negative. The chest x-ray is clear, the x-ray of the abdomen reveals that you are constipated. In regard to your chest and back pain, this is likely costochondritis. See home care instructions. Use OTC ibuprofen 600 mg taken every 6 hours with food, for your pain. Use the methocarbamol, this is a muscle relaxant, as needed for further discomfort. To note this medication will cause drowsiness do not drive or operate machinery while taking the medication. In regard to constipation, purchase [id number] Colace, this is a stool softener, take it twice a day. Purchase [id number]-[id number] MiraLax, use it 2 to 3 times a day, until you begin having normal regular bowel movements. Follow up with your primary care provider as needed. Prescriptions: New methocarbamol 750 mg tablet 750 mg PO Q8H PRN (Reason: pain, moderate) Qty: 10 0RF No Action doxycycline hyclate 100 mg capsule 100 mg PO BID 7 Days Qty: 14 0RF senna 8.6 mg capsule 8.6 mg PO BEDTIME PRN (Reason: constipation) Qty: 7 0RF amoxicillin-pot clavulanate 875-125 mg tablet 1 tab PO Q12H 10 Days Qty: 20 0RF ibuprofen 800 mg tablet 800 mg PO Q8H PRN (Reason: pain) Qty: 20 0RF lidocaine 5 % adhesive patch,medicated 1 patch topical DAILY PRN (Reason: pain) Qty: 15 0RF Rx Instructions: leave on most painful area for up to 12 hrs clindamycin HCl 150 mg capsule 150 mg PO TID 7 Days Qty: 21 0RF Rx Instructions: Take with 300mg caps for total dose of 450mg clindamycin HCl 300 mg capsule 300 mg PO TID 7 Days Qty: 21 0RF Rx Instructions: Take with 150mg caps for total dose of 450mg ibuprofen 800 mg tablet 800 mg PO Q8H PRN (Reason: pain) Qty: 10 0RF magnesium citrate Solution 37.5 ml PO BID PRN (Reason: constipation) Qty: 296 0RF naproxen 500 mg tablet 500 mg PO BID PRN (Reason: pain) Qty: 20 0RF cyclobenzaprine 10 mg tablet 10 mg PO TID PRN (Reason: muscle spasm) Qty: 12 0RF Print Language: Luxembourgish
--- NOTE | 2024-11-14 17:19 | ECG_ITS ---
Test Reason : CHEST PAIN Blood Pressure : */* mmHG Vent. Rate : 89 BPM Atrial Rate : 89 BPM P-R Int : 142 ms QRS Dur : 80 ms QT Int : 342 ms P-R-T Axes : 80 79 71 degrees QTcB Int : 416 ms Normal sinus rhythm Normal ECG No previous ECGs available Referred By: Arcelia Aldridge Electronically Signed By: Natanael Melendrez
[2024-11-14 17:36] LABS: MANUAL DIFF FLAG NO
[2024-11-14 17:39] LABS: Basophils Percent Auto 0.6 % (0-2); Eosinophils Percent Auto 0.2 % (0-4); Hematocrit 35.3 % (42.0-52.0); Hemoglobin 12.2 g/dl (14.0-18.0); Imm Gran Abs Auto 0.02 X10*3/uL (0.00-0.03); Imm Gran Pct Auto 0.4 % (0.0-0.4); Lymphocytes Absolute Auto 1.2 X10*3/uL (1.2-4.9); Lymphocytes Percent Auto 25.5 % (20-40); Mean Corpuscular HGB Conc 34.6 g/dl (31.0-36.0); Mean Corpuscular Hemoglobin 30.7 pg (27.0-33.0); Mean Corpuscular Volume 88.7 fL (80.0-98.0); Monocytes Absolute Auto 0.6 X10*3/uL (0.1-1.2); Monocytes Percent Auto 12.3 % (2-11); Neutrophils Absolute Auto 2.8 x10*3/uL (2.0-8.3); Platelet Count 274 X10*3/uL (160-400); Red Blood Count 3.98 X10*6/uL (4.60-5.80); Red Cell Distribution Width 13.2 % (11.0-16.0); White Blood Count 4.6 X10*3/uL (4.8-10.8)
[2024-11-14 17:43] LABS: Prothrombin Time 11.6 SEC (10.9-12.4)
[2024-11-14 17:57] LABS: Alanine Aminotransferase 10 U/L (0-40); Albumin Level 4.3 g/dL (3.5-5.0); Alkaline Phosphatase 80 U/L (39-117); Anion Gap 11 (12-20); Aspartate Amino Transferase 20 U/L (5-37); Bilirubin Total 0.3 mg/dL (0.0-1.0); Blood Urea Nitrogen 9 mg/dL (9-16); Calcium 9.4 mg/dL (8.4-10.2); Carbon Dioxide 27 mmol/L (22-29); Chloride 108 mmol/L (96-108); Creatinine Clr Calc Pharmacy 113.1; Estimated Glomerular Filt Rate > 60; Glucose Random 95 mg/dL (60-115); Sodium 142 mmol/L (135-145); Total Protein 8.1 g/dL (6.5-8.0)
[2024-11-14 18:05] LABS: Troponin-I High Sensitivity < 2.7 ng/L (<3.5-35.0)
[2024-11-14 18:14] LABS: Influenza A PCR NEGATIVE (Negative); Influenza B PCR NEGATIVE (Negative); Resp Syncy Virus RNA Qual PCR NEGATIVE (Negative); SARS COV2 PCR INHOUSE NEGATIVE (Negative)
--- OUTSIDE RECORDS SUMMARY | 2024-11-14 20:00 | XMS_ITS | Encounter Summary ---
Author Organization [employer] Address [address] [facility] [facility] [address] [place] [address] Care Team Providers Care Mold Sprayer Name Role Phone Hina Aguilar Primary Care Provider [phone] Encounter Details Date Type Department Care Team (Late Contact Info) Description 12/30/2023 Orders Only [address] [address] Sayra Xiong RN Uncomplicated opioid dependence (CMS/HCC) Social History Tobacco Use Types Packs/Day Years Used Date Smoking Tobacco: Every Day Cigarettes Smokeless Tobacco: Never Sex and Gender Information Value Date Recorded Sex Assigned at Male 07/20/2022 10:15 AM EDT Legal Sex Male 10:15 AM EDT Gender Identity Male 07/20/2022 10:15 AM EDT Sexual Orientation Straight 07/20/2022 10 :15 AM EDT documented as of this encounter Plan of Treatment Upcoming Encounters Date Type Department Care Team (Late st Contact Info) Description 12/12/2024 2:00 PM EDT Clinical Support [address] [address] Sayra Xiong RN Scheduled Orders Name Type Priority Associated Diagnoses Orde r Schedule Hepatic Function Panel Lab Routine Uncomplicated opioid dependence (CMS/HCC) Expected: 12/30/2023 (Approximate), Expires: 12/29/2024 Hepatitis C Antibody with Reflex to HCV, RNA, Quantitative, Real-Time PCR Lab Routine Uncomplicated opioid dependence (CMS/HCC) Expected: 12/30/2023 (Approximate), Expires: 12/29/2024 HIV-1/2 Antigen and Antibodies, Fourth Generation, with Reflexes Lab Routine Uncomplicated opioid dependence (CMS/HCC) Expected: 12/30/2023 (Approximate), Expires: 12/29/2024 Syphilis Screen Lab Routine Uncomplicated opioid dependence (CMS/HCC) Expected: 12/30/2023 (Approximate), Expires: 12/29/2024 T-SPOT??.TB Lab Routine Uncomplicated opioid dependence (CMS/HCC) Expected: 12/30/2023 (Approximate), Expires: 12/29/2024 documented as of this encounter Visit Diagnoses Diagnosis Uncomplicated opioid dependence (CMS/HCC) documented in this encounter Care Teams Mold Sprayer Relationship Specialty Start Date End Date Hina Aguilar ANP [address] [place] [id number] PCP - General Family Medicine 07/09/20 documented as of this encounter
--- OUTSIDE RECORDS SUMMARY | 2024-11-14 20:00 | XMS_ITS | Encounter Summary ---
Author Organization [employer] Address [address] [facility] [address] [place] [address] Care Team Providers Care Underground Bolting Machine Operator Name Role Phone Hina Aguilar Primary Care Provider [phone] Encounter Details Date Type Department Care Team (Latest Contact Info) Description 10/17/2024 2:00 PM EST Telemedicine [facility] [address] [place], [place] [phone] Jose Rodas MD [address] [place], [place] [phone] Uncomplicated opioid dependence (CMS/HCC) (Primary Dx) Social History Tobacco Use Types Packs/Day Years Used Date Smoking Tobacco: Every Day Cigarettes Smokeless Tobacco: Never Sex and Gender Information Value Date Recorded Sex Assigned at Male 07/20/2022 10:15 AM EDT Legal Sex Male 10:15 AM EDT Gender Identity Male 07/20/2022 10:15 AM EDT Sexual Orientation Straight 07/20/2022 10 :15 AM EDT documented as of this encounter Progress Notes * Jose Rodas MD - 10/17/2024 2:00 PM EST Subjective Patient ID: Aaron Rutherford is a 38 y.o. male. HPI Patient here today for Opioid Dependence RV. Patient on current Suboxone dose of 24/6 mg on a 4 week schedule. Patient has been in the program for 5 years. Induction date: 10/03/19. LFTs done 09/29/2024. Patient actively enrolled in behavioral health services, therapist Maria. ANA DAVID reviewed by provider. Last PCP appt 07/09/20. [facility] reviewed. UTOX: + bup, thc. Has Narcan. Declines speaking with continuous improvement coach or BHN at this time. No recent constipation, has Colace if needed.. Finished Epclusa; repeat labs: undetectable Hep C VL. Needs lab tests done. Discussed Sublocade but he declined. Discussed Suboxone dental hygiene and gave him written instructions. Lives between mother's place and partner Jessica and their daughter and 4 sons' place. Smokes 5-7 cigarettes/day, declines cessation assistance. 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 Patient gave verbal consent to be seen in this manner. A complete assessment and plan is detailed in the note, all of which were conducted remotely using virtual technology. Patient identity was verbally confirmed with 2 identifiers at the start of the visit. [facility] [place] [facility] Provider was located in the clinic during the visit. The following portions of the chart were reviewed this encounter and updated as appropriate: Review of Systems Constitutional: Negative for fever. Respiratory: Negative for shortness of breath. Cardiovascular: Negative for chest pain. Gastrointestinal: Negative for abdominal pain. Skin: Negative for rash. Neurological: Negative for headaches. Objective Procedures Assessment/Plan Uncomplicated opioid dependence (CMS/HCC) Recovery support, harm reduction (including Narcan) and behavioral health attendance reviewed. Continue Suboxone 24/6 mg on 4 week schedule. documented in this encounter Plan of Treatment Upcoming Encounters Date Type Department Care Team (Late st Contact Info) Description 12/12/2024 2:00 PM EDT Clinical Support [facility] [address] [place] [address] Sayra Xiong RN documented as of this encounter Visit Diagnoses Diagnosis Uncomplicated opioid dependence (CMS/HCC)- Primary documented in this encounter Care Teams Underground Bolting Machine Operator Relationship Specialty Start Date End Date Hina Aguilar ANP [address] [place] [address] PCP - General Family Medicine 07/09/20 documented as of this encounter
--- OUTSIDE RECORDS SUMMARY | 2024-11-14 20:00 | XMS_ITS | Clinical Summary ---
Author Organization [employer] Address [address] [facility] [address] [place] [address] Care Team Providers Care Solar Designer/Installer Name Role Phone Hina Aguilar Primary Care Provider [phone] Allergies Active Allergy Reactions Criticality Noted Date Comments Shellfish-Derived Products 01/27/2012 Other reaction(s): Angioedema Medications naloxone (Narcan) 4 mg/0.1 mL nasal spray Administer 4 mg into affected nostril(s) if needed for opioid reversal. May repeat every 2-3 minutes if needed, alternating nostrils, until medical assistance becomes available. Active polyethylene glycol, PEG, 3350 (MiraLax) 17 GM/SCOOP powderIndication s:Constipation, unspecified constipation type 17 grams in 8-12 oz fluid like water at bedtime prn constipation 255 g 4 Active docusate sodium (Colace) 100 MG capsuleIndicatio ns:Constipation, unspecified constipation type Take 1 tab po bid prn constipation 60 capsule 3 4 Active acetaminophen (Tylenol) 500 MG tablet Take 2 tablets (1,000 mg) by mouth every 6 (six) hours if needed for moderate pain or fever. 40 tablet 5 Active ibuprofen 400 MG tablet Take 1 tablet (400 mg) by mouth every 6 (six) hours if needed for moderate pain or fever for up to 30 doses. 30 tablet 5 Active Buprenorphine HCl-Naloxone HCl (Suboxone) 8-2 MG SL filmIndications: Uncomplicated opioid dependence (CMS/HCC) Place 1 Film under the tongue 3 times daily. 84 Film 1 5 025 Active Active Problems Problem Noted Date Diagnosed Date Chronic hepatitis C without hepatic coma 022 Hepatitis C virus infection cured after antiviral drug therapy 08/31/2022 Constipation due to opioid therapy 08/31/2022 Uncomplicated opioid dependence 10/04/2012 Encounters Date Type Department Care Team Description 11/14/2024 Orders Only GENERIC EXTERNAL DATA DEPARTMENT Provider, Generic External Data 11/14/[address] [address] Elisa Blackburn [place] 10/17/2024 2:00 PM EST Telemedicine [address] [address] Jose Rodas MD Uncomplicated opioid dependence (CMS/HCC) (Primary Dx) 10/17/2024 Travel 10/11/[address] [address] Sayra Xiong, BRYANT Uncomplicated opioid dependence (CMS/HCC) 09/29/2024 10:20 AM EST Office Visit [facility] [address] [place] [phone] Jose Rodas MD Dysuria 09/29/2024 Orders Only [facility] [address] [place] [phone] Jose Rodas MD 09/28/[address] [address] Hina Aguilar ANP No Show 09/28/[address] [address] Hina Aguilar ANP Nurse Triage 09/28/[address] [address] Hina Aguilar ANP Appointment Request 09/25/[address] [address] Charla Calixto, RN Nurse Triage 09/22/[address] [address] Sayra Xiong, BRYANT 09/22/2024 Telephone [facility] [address] [place] [phone] Sayra Xiong, BRYANT from Last 3 Months Immunizations Name Administration Dates Next Due DTaP 11/07/1992, 3,11/13/1987,1985 Hep A, ped/adol, 2 dose 09/09/2011,12/31/2010 Hep B, Adolescent or Pediatric 2000,1999,09/05/1999 Hep B, adult 11/14/2019 IPV 11/07/1992, 9,11/13/1986,1985 MMR 11/07/1992,04/30/1989 Pfizer Covid-19 Vaccine 12+ 02/06/2021, 1 Pfizer Covid-19 Vaccine 12+ Bivalent 11/10/2022 TD (adult), 2 Lf tetanus tox oid, preservative free, adsorbed 01/07/2009,09/05/1999 Social History Tobacco Use Types Packs/Day Years Used Date Smoking Tobacco: Every Day Cigarettes Smokeless Tobacco: Never Tobacco Cessation:Ready to Q uit: Not Asked; Counseling Given: Not Answered Sex and Gender Information Value Date Recorded Sex Assigned at Male 07/20/2022 10:15 AM EDT Legal Sex Male 10:15 AM EDT Gender Identity Male 07/20/2022 10:15 AM EDT Sexual Orientation Straight 07/20/2022 10 :15 AM EDT Last Filed Vital Signs Vital Sign Reading Time Taken Comments Blood Pressure 126/85 09/29/2024 10:38 AM EST Pulse 95 09/29/2024 10:38 AM EST Temperature 36.7 ??C (98.1 ??F) 09/29/2024 10:[address] Respiratory Rate 17 09/29/2024 10:38 AM EST Oxygen Saturation 98% 09/29/2024 10:38 AM EST Inhaled Oxygen Concentration - - Weight 52.3 kg (115 lb 6.4 oz) 09/29/2024 10:38 AM EST Height 170.2 cm (5' 7 ) 09/29/2024 10:38 AM EST Body Mass Index 18.07 09/29/2024 10:38 AM EST Plan of Treatment Upcoming Encounters Date Type Department Care Team (Late st Contact Info) Description 12/12/2024 2:00 PM EDT Clinical Support [address] [address] Enko, Sayra, RN Health Maintenance Due Date Last Done Comments Depression Screening 1985 Lipid Panel 1985 SDOH Screening 1985 Alcohol/Substance Use Screening 1997 Family Planning (PISQ) 2000 Hepatitis A Vaccines (1 of 2 - Risk 2-dose series) 2004 09/09/2011, 12/31/2010 Pneumococcal Vaccine: Pediatrics (0 to 5 Years) and At-Risk Patients (6 to 49) Years) (1 of 2 - PCV) 2004 DTaP/Tdap/Td Vaccines (5 - Tdap) 01/08/2009 01/07/2009, 09/05/1999, 11/07/1992, Additional history exists COVID-19 Vaccine ( - season) 2024 11/10/2022, 02/06/2021, 01/15/2021 Influenza Vaccine (#1) 2024 Tobacco Screening 10/17/2025 10/17/2024 Zoster Vaccines (1 of 2) 12/03/2035 RSV Patients and Patients Aged 60 years or older (1 - 1-dose 75+ series) 2060 IPV Vaccines Completed 11/07/1992, 04/20, 11/13/1986, Additional history exists Hepatitis B Vaccines Completed 11/14/2019, 2000, 06/02/2000, Additional history exists HIV Screening Completed 09/29/2024, 12/20, 11/09/2019 HIB Vaccines Aged Out No longer eligi ble based on patient's age to complete this topic HPV Vaccines Aged Out No longer eligi ble based on patient's age to complete this topic Meningococcal Vaccine Aged Out No royal herb eligible based on patient's age to complete this topic RSV under 20 months Aged Out No longe r eligible based on patient's age to complete this topic Rotavirus Vaccines Aged Out No longer eligible based on patient's age to complete this topic Procedures Procedure Name Priority Date/Time Associated Diagnosis Comments XR CHEST 2 VIEWS Routine 11/14/2024 6:05 PM EST HIGH SENSITIVITY TROPONIN I Routine 11/14/2024 5:32 PM EST COMPREHENSIVE METABOLIC PANEL Routine 11/14/2024 5:32 PM EST CBC WITH AUTO DIFFERENTIAL Routine 11/14/2024 5:32 PM EST PROTHROMBIN TIME-INR Routine 11/14/2024 5:32 PM EST SARS COV2/INFLUENZA A/B AND RSV RNA QL NAAT Routine 11/14/2024 5:32 PM EST HEPATITIS C VIRAL RNA, QUANTITATIVE, REAL-TIME PCR Routine 09/29/2024 11:54 AM EST RPR (MONITOR) W/REFL TITER Routine 09/29/2024 11:54 AM EST Uncomplicated opioid dependence (CMS/HCC) T-SPOT(R).TB Routine 09/29/2024 11:54 AM EST Uncomplicated opioid dependence (CMS/HCC) HIV 1/2 ANTIGEN/ANTIBODY, FOURTH GENERATION W/RFL Routine 09/29/2024 11:54 AM EST Uncomplicated opioid dependence (CMS/HCC) HEPATITIS C AB W/REFL TO HCV RNA, QN, PCR Routine 09/29/2024 11:54 AM EST Uncomplicated opioid dependence (CMS/HCC) HEPATIC FUNCTION PANEL Routine 11:54 AM EST Uncomplicated opioid dependence (CMS/HCC) HEPATITIS B SURFACE ANTIGEN, EIA Routine 09/29/2024 11:54 AM EST Uncomplicated opioid dependence (CMS/HCC) HEPATITIS B SURFACE ANTIBODY, QUALITATIVE Routine 09/29/2024 11:54 AM EST Uncomplicated opioid dependence (CMS/HCC) HEPATITIS B CORE AB TOTAL Routine 09/29/2024 11:54 AM EST Uncomplicated opioid dependence (CMS/HCC) HEPATITIS A ANTIBODY, TOTAL Routine 09/29/2024 11:54 AM EST Uncomplicated opioid dependence (CMS/HCC) POCT URINALYSIS DIPSTICK Routine 09/29/2024 11:02 AM EST Dysuria CULTURE, URINE, ROUTINE Routine 09/29/2024 11:02 AM EST Dysuria from Last 3 Months Results * XR Chest 2 Views (11/14/2024 6:05 PM EST) Anatomical Region Laterality Modality Chest Radiographic Shanon ging 11/14/2024 6:05 PM EST Narrative 11/14/2024 6:06 PM EST ? [facility] ?[address] ?[place] [address] ?XRay Report ? Signed ? Patient: Aaron Rutherford ?MR#: [id number] ? : 1985 ?Acct:[id number] ? Age/Sex: 38 / M ?ADM Date: 11/14/24 ? Loc: HO.ED ? Attending Dr: ? Ordering Physician: Arcelia Aldridge NP ?? Date of Service: 11/14/24 ?? Procedure(s): XR chest 2V ?? Accession Number(s): [id number] ? cc: [facility]; Arcelia Aldridge NP ? CLINICAL HISTORY: chest pain, cough ? 2 view chest x-ray ? Comparison: CR - CHEST 2 VIEWS - 12/26/18 00:02 EDT ? Findings: ?? No consolidation or effusion. ?? Normal size heart. ?? No acute fracture. ? IMPRESSION: ?? 1. No acute findings. ? This document has been electronically signed by: Keith Lanza MD on ?? 11/14/2024 18:05:26 ? Dictated By: ?Keith Lanza MD ? Signed By: ?<Electronically signed by Keith Lanza MD in OV> ? 11/14/24 1806 ? DD/ 1805 ? TD/TT: 11/14/24 1805 ? Lead Embedded Software Engineer: ? Procedure Note [place] - 11/14/[address] [address] XRay Report Signed Patient: Aaron RutherfordMR#: [id number] : 1985Acct:[id number] Age/Sex: 38 / MADM Date: 11/14/24 Loc: HO.ED Attending Dr: Ordering Physician: Arcelia Aldridge NP Date of Service: 11/14/24 Procedure(s): XR chest 2V Accession Number(s): [id number] cc: [facility]; Arcelia Aldridge NP CLINICAL HISTORY: chest pain, cough 2 view chest x-ray Comparison: CR - CHEST 2 VIEWS - 12/26/18 00:02 EDT Findings: No consolidation or effusion. Normal size heart. No acute fracture. IMPRESSION: 1. No acute findings. This document has been electronically signed by: Keith Lanza MD on 11/14/2024 18:05:26 Dictated By: Keith Lanza MD Signed By: <Electronically signed by Keith Lanza MD in OV> 11/14/241805 DD/ 04 TD/TT: 11/14/241804 Lead Embedded Software Engineer: [facility] External Provider IMG XR PROCEDURES Final Result * High Sensitivity Troponin I (11/14/2024 5:32 PM EST) [facility] TROPONIN I HIGH SENSITIVITY <2.7 <3.5 - 35.0 ng/L [facility] Comment:The Garcia high sens itivity Troponin-I results should beused in conjunction with other diagnostic information suchas ECG, clinical observations and information, and patientsymptoms to aid in the diagnosis of SD. 11/14/2024 5:32 PM EST 11/14/2024 5:34 PM EST Generic External Data Provider LAB BLOOD ORDERAB LES Final Result [facility] [address] [place] [phone] * SARS-CoV-2 RNA, Influenza A/B, and RSV RNA, Ql NAAT (11/14/2024 5:32 PM EST) [facility] Influenza A PCR NEGATIVE Negative [facility] Influenza B PCR NEGATIVE Negative [facility] Resp Syncy Virus RNA Qual PCR NEGATIVE Negative [facility] SARS COV2 PCR NEGATIVE Negative [facility] Comment:All test results mus t be correlated with clinical findings.Negative results do not preclude SARS-CoV2, influenza Avirus, influenza B virus and/or RSV infectionand should not be used as the sole basis for treatment orother patient management decisions. Negative results must becombined with clinical observations, patient history, andepidemiological information.This test has not been evaluated for monitoring treatment ofinfection.This test has been authorized by the FDA under an EmergencyUse Authorization (EUA) for use by authorized laboratories.Testing performed on the [facility] GeneXpert utilizingreal-time RT-PCR.All SARS CoV2 and positive influenza A/B results arereported to [facility]. 11/14/2024 5:32 PM EST 11/14/2024 5:34 PM EST us Generic External Data Provider LAB MICROBIOLOGY - GENERAL ORDERABLES Final Result [facility] [address] [place] [address] [phone] * (ABNORMAL) CBC auto differential (11/14/2024 5:32 PM EST) White Blood Count 4.6(L) 4.8 - 10.8 X10*3/uL [facility] Red Blood Count 3.98(L) 4.60 - 5.80 X10*6/uL [facility] Hemoglobin 12.2(L) 14.0 - 18.0 g/dl [facility] Hematocrit 35.3(L) 42.0 - 52.0 % [facility] Mean Corpuscular Volume 88.7 80.0 - 98.0 fL [facility] Mean Corpuscular Hemoglobin 30.7 27.0 - 33.0 pg [facility] Mean Corpuscular HGB Conc 34.6 31.0 - 36.0 g/dl [facility] Red Cell Distribution Width 13.2 11.0 - 16.0 % [facility] Platelet Count 274 160 - 400 X10*3/uL [facility] Mean Platelet Volume 9.0(L) 9.4 - 12.4 fL [facility] Neutrophils Percent Auto 61.0 45 - 73 % [facility] Imm Gran Pct Auto 0.4 0.0 - 0.4 % [facility] Lymphocytes Percent Auto 25.5 20 - 40 % [facility] Monocytes Percent Auto 12.3(H) 2 - 11 % [facility] Eosinophils Percent Auto 0.2 0 - 4 % [facility] Basophils Percent Auto 0.6 0 - 2 % [facility] NRBC Pct Auto 0.0 0.0 - 0.2 /100WBC [facility] Neutrophils Absolute Auto 2.8 2.0 - 8.3 x10*3/uL [facility] Imm Gran Abs Auto 0.02 0.00 - 0.03 X10*3/uL [facility] Lymphocytes Absolute Auto 1.2 1.2 - 4.9 X10*3/uL [facility] Monocytes Absolute Auto 0.6 0.1 - 1.2 X10*3/uL [facility] Eosinophils Absolute Auto 0.0 0.0 - 0.4 X10*3/uL [facility] Basophils Absolute Auto 0.0 0.0 - 0.2 X10*3/uL [facility] NRBC Abs Auto 0.000 0.0 - 0.012 X10*3/uL [facility] 11/14/2024 5:32 PM EST 11/14/2024 5:34 PM EST us Generic External Data Provider LAB BLOOD ORDERAB LES Final Result [facility] [address] [place] [phone] * Prothrombin Time-INR (11/14/2024 5:32 PM EST) Prothrombin Time 11.6 10.9 - 12.4 SEC [facility] INTERNATIONAL NORM RATIO 1.0 0.9 - 1.1 [facility] Comment:INTERNATIONAL NORMAL IZED RATIO (INR) REFERENCE RANGES Reference RangeFor patients not on anticoagulant therapy: 0.9 - 1.1INR ranges for oral anticoagulanttherapy:For prevention and treatment of venous thrombosis and pulmonary embolism: 2.0 - 3.0For acute myocardial infarction with aspirin therapy: 2.0 - 3.0For acute myocardial infarction without aspirin therapy: 3.0 - 4.0For patients with mechanical prosthetic heart valves: 2.5 - 3.5 11/14/2024 5:32 PM EST 11/14/2024 5:34 PM EST us Generic External Data Provider LAB BLOOD ORDERAB LES Final Result [facility] [address] [place] [phone] * (ABNORMAL) Comprehensive Metabolic Panel (11/14/2024 5:32 PM EST) Sodium 142 135 - 145 mmol/L [facility] Potassium 4.0 3.3 - 5.1 mmol/L [facility] Chloride 108 96 - 108 mmol/L [facility] Carbon Dioxide 27 22 - 29 mmol/L [facility] Anion Gap 11(L) 12 - 20 [facility] Urea Nitrogen (BUN) 9 9 - 16 mg/dL [facility] Creatinine, Serum 0.67 0.5 - 1.4 mg/dL [facility] Creatinine Clr Calc Pharmacy 113.1 [facility] Comment:eGFR (calculated fro m the MDRD study equation) and eCrCl(calculated from the Cockcroft-Gault equation) are based ondifferent parameters and may not yield comparable results.If eCrCl result is absurd, please check patient'sheight/weight. Estimated Glomerular Filt Rate >60 [facility] Comment:Chronic Kidney Disea se: Estimated GFR < 60 mL/min/1.13z0Rechll Kidney Disease: Estimated GFR < 15 mL/min/1.73m2 Glucose 95 60 - 115 mg/dL [facility] Calcium 9.4 8.4 - 10.2 mg/dL [facility] Bilirubin, Total 0.3 0.0 - 1.0 mg/dL [facility] Aspartate Amino Transferase 20 5 - 37 U/L [facility] Alanine Aminotransferase 10 0 - 40 U/L [facility] Total Protein 8.1(H) 6.5 - 8.0 g/dL [facility] Albumin Level 4.3 3.5 - 5.0 g/dL [facility] Alkaline Phosphatase 80 39 - 117 U/L [facility] 11/14/2024 5:32 PM EST 11/14/2024 5:34 PM EST us Generic External Data Provider LAB BLOOD ORDERAB LES Final Result [facility] [address] [place] [phone] * T-SPOT??.TB (09/29/2024 11:54 AM EST) T Spot TB Negative Negative [facility] Comment:A negative test resu lt does not exclude the possibilityof exposure to or infection with Mycobacteriumtuberculosis (M. tuberculosis). Patients with recentexposure to TB infected individuals exhibiting anegative T-SPOT.TB result should be considered forretesting within 6 weeks or if other relevant clinicalsymptoms indicate. Results from T-SPOT.TB testing mustbe used in conjunction with each individual'sepidemiological history, current medical status,and results of other diagnostic evaluations.The T-SPOT.TB test is qualitative and results arereported as positive, borderline, or negative, giventhat the test controls perform as expected. In linewith the Centers for Disease Control and Prevention's2010 recommendation to report quantitative measurementsalongside the qualitative result, the laboratoryprovides spot counts for informational purposes only.The T-SPOT.TB test should not be interpreted as aquantitative test. TS PANEL A 0 [facility] TS PANEL B 0 [facility] Negative Control Passed [facility] Positive Control Passed [facility] Comment:For additional infor mation, please refer tohttp://education.PluggedIn/faq/DJG974(This link is being provided for informational/educational purposes only.)THIS TEST WAS PERFORMED AT:[id number] [place] [id number] ARAGON MD,PHD 09/29/2024 11:5 4 AM EST 09/29/2024 12:56 PM EST Jose Rodas MD LAB BLOOD ORDERABLES Final Resul t Performing Organization Address [facility] Co de Phone Number [facility] [address] [place] [address] [phone] * Hepatitis C Viral RNA, Quantitative, Real-Time PCR (09/29/2024 11:54 AM EST) [facility] Hepatitis C Viral Load <15 NOT DETECTED NOT DETECTED IU/mL [facility] HCV Log PCR <1.18 NOT DETECTED NOT DETECTED Log IU/mL [facility] Comment:For additional infor mation, please refer [email or web address].PluggedIn/faq/ESZ42q5(This link is being provided for informational/educational purposes only.)THIS TEST WAS PERFORMED AT:[employer] [address] [phone] PEDRAZA MD 09/29/2024 11:5 4 AM EST 10/02/2024 11:18 AM EST Jose Rodas MD LAB BLOOD ORDERABLES Final Resul t Performing Organization Address [facility] de Phone Number [facility] [address] [place] [address] [phone] * (ABNORMAL) Hepatitis C Antibody with Reflex to HCV, RNA, Quantitative, Real- Time PCR (09/29/2024 11:54 AM EST) Pathologist [facility] Hepatitis C Antibody Reactive( A) Nonreactive [facility] Comment:Presumptive evidence of antibodies to HCV. Blood Venous blood specimen / Unknown 09/29/2024 11:54 AM EST 09/29/2024 12:56 PM EST us Jose Rodas MD LAB BLOOD ORDERABLES Final Resul t Performing Organization Address [facility] Co de Phone Number [facility] [address] [place] [phone] * Hepatitis A Antibody, Total (09/29/2024 11:54 AM EST) Hepatitis A Antibody IgG REACTIVE Nonreactive [facility] Comment:The presence of IgG anti-HAV implies past HAV infection(recent or distant) or vaccination against HAV. Blood Venous blood specimen / Unknown 09/29/2024 11:54 AM EST 09/29/2024 12:56 PM EST us Jose Rodas MD LAB BLOOD ORDERABLES Final Resul t Performing Organization Address [facility] Co de Phone Number [facility] [address] [place] [phone] * Hepatitis B surface antigen, EIA (09/29/2024 11:54 AM EST) Hepatitis B Surface Ag Negative Negative [facility] Blood Venous blood specimen / Unknown 09/29/2024 11:54 AM EST 09/29/2024 12:56 PM EST us Jose Rodas MD LAB BLOOD ORDERABLES Final Resul t Performing Organization Address [facility] Co de Phone Number [facility] [address] [place] [phone] * Hepatitis B Core Antibody, Total (09/29/2024 11:54 AM EST) Hepatitis B Core Antibody Nonreactive Nonreactive [facility] Blood Venous blood specimen / Unknown 09/29/2024 11:54 AM EST 09/29/2024 12:56 PM EST us Jose Rodas MD LAB BLOOD ORDERABLES Final Resul t Performing Organization Address [facility]/ZIP Co de Phone Number [facility] [address] [place] [address] [phone] * RPR (Monitor) with Reflex to??Titer (09/29/2024 11:54 AM EST) RPR (Monitor) w/Refl Titer NON-REACTI VE NON-REACT LARS [facility] Comment:THIS TEST WAS PERFOR MED AT:[employer] [place] [phone] PEDRAZA MD Rapid Plasma Reagin Ab Titer TNP [facility] Blood Venous blood specimen / Unknown 09/29/2024 11:54 AM EST 09/29/2024 12:56 PM EST us Jose Rodas MD LAB BLOOD ORDERABLES Final Resul t Performing Organization Address [facility] Co de Phone Number [facility] [address] [place] [phone] * HIV-1/2 Antigen and Antibodies, Fourth Generation, with Reflexes (09/29/2024 11:54 AM EST) HIV AB/AG Nonreactive Nonreactive [facility] Comment:HIV-1 p24 Ag and/or HIV-1/HIV-2 Ab not detected.A test result that is nonreactive does not exclude thepossibility of exposure to or infection with HIV-1 and/orHIV-2. Nonreactive results in this assay for individualswith prior exposure to HIV-1 and/or HIV-2 may be due toantigen and antibody levels that are below the limit ofdetection of this assay.The [employer] HIV Ag/Ab Combo assay result andsupplemental assay results should be interpreted inconjunction with the patient's clinical presentation,history and other laboratory results. If the results areinconsistent with clinical evidence, additional testing issuggested to confirm the result. Blood Venous blood specimen / Unknown 09/29/2024 11:54 AM EST 09/29/2024 12:56 PM EST us Jose Rodas MD LAB BLOOD ORDERABLES Final Resul t Performing Organization Address [facility] Co de Phone Number [facility] [address] [place] [phone] * Hepatitis B Surface Antibody, Qualitative (09/29/2024 11:54 AM EST) Pathologist [facility] ~Hepatitis B Surface Antibody REACTIVE Nonreactive [facility] Comment:REACTIVE: > 11.99 mI U/mL Blood Venous blood specimen / Unknown 09/29/2024 11:54 AM EST 09/29/2024 12:56 PM EST us Jose Rodas MD LAB BLOOD ORDERABLES Final Resul t Performing Organization Address [facility] de Phone Number [facility] [address] [place] [phone] * Hepatic Function Panel (09/29/2024 11:54 AM EST) Pathologist [facility] Bilirubin, Total 0.4 0.0 - 1.0 mg/dL [facility] Bilirubin, Direct 0.1 0.0 - 0.5 mg/dL [facility] Aspartate Amino Transferase 16 5 - 37 U/L [facility] Alanine Aminotransferase 12 0 - 40 U/L [facility] Total Protein 8.0 6.5 - 8.0 g/dL [facility] Albumin Level 4.4 3.5 - 5.0 g/dL [facility] Alkaline Phosphatase 79 39 - 117 U/L [facility] Blood Venous blood specimen / Unknown 09/29/2024 11:54 AM EST 09/29/2024 12:56 PM EST us Jose Rodas MD LAB BLOOD ORDERABLES Final Resul t Performing Organization Address [facility] de Phone Number [facility] [address] [place] [address] [phone] * (ABNORMAL) POCT urinalysis dipstick manually resulted (09/29/2024 11:02 AM EST) Color, UA Yellow Clarity, UA Cloudy Glucose, UA Negative Bilirubin, UA Negative Ketones, UA Negative Spec Grav, UA 1.010 Blood, UA Positive(A) Negative, None Detected Comment:Large pH, UA 6.5 Protein, UA Trace Comment:30 mg/dl Urobilinogen, UA 0.2 Leukocytes, UA Moderate(A) Negative, Rare, Trace Nitrite, UA Positive(A) Negative, None Detected Urine 09/29/2024 11:0 2 AM EST us Jose Rodas MD POINT OF CARE TEST ENTER/EDIT OR DERABLES Final Result * Culture, Urine, Routine (09/29/2024 11:02 AM EST) Urine Urine specimen obtained by clean catch procedure / Unknown 09/29/2024 11:02 AM EST 09/29/2024 12:56 PM EST Comment:UACC Narrative [facility] - 10/01/2024 7:42 AM EST Escherichia coli Quant > 100,000 cfu/mL Escherichia coli: Ampicillin >=32(R) Escherichia coli: Cefazolin 2(S) Escherichia coli: Cefepime <=0.12(S) Escherichia coli: Ceftriaxone <=0.25(S) Escherichia coli: Ciprofloxacin <=0.06(S) Escherichia coli: Gentamicin <=1(S) Escherichia coli: Nitrofurantoin <=16(S) Escherichia coli: Trimethoprim/Sulfamethoxazole >=320(R) Specimen Source: Urine clean catch us Jose Rodsa MD LAB MICROBIOLOGY - GENERAL ORDER ROCHELLE Final Result Performing Organization Address City/[facility]/ZIP Co de Phone Number [facility] [address] [place] [address] [phone] from Last 3 Months Insurance [facility] C3 HSN FULL Care Teams Solar Designer/Installer Relationship Specialty Start Date End Date Hina Aguilar ANP [address] [place] [phone] PCP - General Family Medicine 07/09/20
--- OUTSIDE RECORDS SUMMARY | 2024-11-14 20:00 | XMS_ITS | Encounter Summary ---
Author Organization [employer] Address [address] [place] [address] [address], [place] [address] Care Team Providers Care Clinical Research Physician Name Role Phone Hina Aguilar ANP Primary Care Provider [phone] Reason for Visit * Reason Onset Date Comments Appointment Request 09/28/2024 Encounter Details Date Type Department Care Team (Late st Contact Info) Description 09/28/2024 Telephone [facility] [address] [place] [address] [phone] Hina Aguilar ANP [address] [place], [place] [phone] Appointment Request Social History Tobacco Use Types Packs/Day Years Used Date Smoking Tobacco: Every Day Cigarettes Smokeless Tobacco: Never Sex and Gender Information Value Date Recorded Sex Assigned at Male 07/20/2022 10:15 AM EDT Legal Sex Male 10:15 AM EDT Gender Identity Male 07/20/2022 10:15 AM EDT Sexual Orientation Straight 07/20/2022 10 :15 AM EDT documented as of this encounter Miscellaneous Notes * Telephone Encounter - [place] Ly - 09/28/2024 2:33 PM EST Tc from pt requesting a callback as he missed current appointment 09/28/2024 , pt is requesting a NEW Appointment documented in this encounter Plan of Treatment Upcoming Encounters Date Type Department Care Team (Late st Contact Info) Description 12/12/2024 2:00 PM EDT Clinical Support [address] [phone] Sayra Xiong RN documented as of this encounter Visit Diagnoses Not on filedocumented in this encounter Care Teams Clinical Research Physician Relationship Specialty Start Date End Date Hina Aguilar ANP [address] [place] [address] PCP - General Family Medicine 07/09/20 documented as of this encounter
--- OUTSIDE RECORDS SUMMARY | 2024-11-14 20:00 | XMS_ITS | Encounter Summary ---
Author Organization [employer] [facility] Address [address] [place] [address] Care Team Providers Care Agricultural Systems Specialist Name Role Phone Hina Aguilar Primary Care Provider [phone] Reason for Visit * Reason Comments Med Refill Encounter Details Date Type Department Care Team (Late st Contact Info) Description 11/30/2023 Refill [facility] [address] [place] [phone] Jose Rodas MD [address] [place] [phone] Uncomplicated opioid dependence (CMS/HCC) Social History Tobacco [...] Description 12/12/2024 2:00 PM EDT Clinical Support [facility] [address] [place] [phone] Sayra Xiong RN documented as of this encounter Visit Diagnoses Diagnosis Uncomplicated opioid dependence (CMS/HCC) documented in this encounter Care Teams Agricultural Systems Specialist Relationship Specialty Start Date End Date Hina Aguilar ANP [address] [place] [phone] PCP - General Family Medicine 07/09/20 documented as of this encounter
--- OUTSIDE RECORDS SUMMARY | 2024-11-14 20:00 | XMS_ITS | Encounter Summary ---
Author Organization [facility] [facility] Address [address] [place] [address] [address] [place] [address] Care Team Providers Care Hand Alterations Seamstress Name Role Phone Hina Aguilar Primary Care Provider Reason for Visit * Reason Comments Med Refill Encounter Details Date Type Department Care Team (Late st Contact Info) Description 03/02/2024 Refill [facility] [address] [place] [address] [phone] Balbir Don MD [address] [place] [address] [phone] Constipation, unspecified constipation type Social History Tobacco Use Types Packs/Day Years [...] Description 12/12/2024 2:00 PM EDT Clinical Support [facility] [address] [place] [phone] Sayra Xiong RN documented as of this encounter Visit Diagnoses Diagnosis Constipation, unspecified constipation type documented in this encounter Care Teams Hand Alterations Seamstress Relationship Specialty Start Date End Date Hina Aguilar ANP [address] [place] [phone] PCP - General Family Medicine 07/09/20 documented as of this encounter
--- OUTSIDE RECORDS SUMMARY | 2024-11-14 20:00 | XMS_ITS | Encounter Summary ---
Author Organization [employer] Address [address] [facility] [address]t [place] [address] Care Team Providers Care Grey Goods Examiner Name Role Phone Hina Aguilar Primary Care Provider [phone] Encounter Details Date Type Department Care Team (Latest Contact Info) Description 10/17/2024 Travel Social History Tobacco Use Types Packs/Day Years [...] Description 12/12/2024 2:00 PM EDT Clinical Support [facility] [address] [place] [address] Sayra Xiong RN documented as of this encounter Visit Diagnoses Not on filedocumented in this encounter Care Teams Grey Goods Examiner Relationship Specialty Start Date End Date Hina Aguilar ANP [address] [place] [address] PCP - General Family Medicine 07/09/20 documented as of this encounter
--- OUTSIDE RECORDS SUMMARY | 2024-11-14 20:00 | XMS_ITS | Encounter Summary ---
Author Organization [employer] Address [address] [facility] 7t [place] [address] Care Team Providers Care Manager Clinical Research Name Role Phone Hina Aguilar Primary Care Provider [phone] Encounter Details Date Type Department Care Team (Late st Contact Info) Description 11/14/2024 Orders Only GENERIC EXTERNAL DATA DEPARTMENT Provider, Generic External Data Social History Tobacco Use Types Packs/Day Years [...] Description 12/12/2024 2:00 PM EDT Clinical Support [facility] [address] [place] [phone] Sayra Xiong RN documented as of this encounter Procedures Procedure Name Priority Date/Time Associated Diagnosis Comments XR CHEST 2 VIEWS Routine 11/14/2024 6:05 PM EST HIGH SENSITIVITY TROPONIN I Routine 11/14/2024 5:32 PM EST SARS COV2/INFLUENZA A/B AND RSV RNA QL NAAT Routine 11/14/2024 5:32 PM EST CBC WITH AUTO DIFFERENTIAL Routine 11/14/2024 5:32 PM EST PROTHROMBIN TIME-INR Routine 11/14/2024 5:32 PM EST COMPREHENSIVE METABOLIC PANEL Routine 11/14/2024 5:32 PM EST documented in this encounter Results * XR Chest 2 Views (11/14/2024 6:05 PM EST) Anatomical Region Laterality Modality Chest Radiographic Shanon ging 11/14/2024 6:05 PM EST Narrative 11/14/2024 6:06 PM EST ? [facility] ?[address] ?[place] [address] ?XRay Report ? Signed ? Patient: Krish,Aaron ?MR#: [id number] ? : 1985 ?Acct:[id number] ? Age/Sex: 38 / M ?ADM Date: 11/14/24 ? Loc: HO.ED ? Attending Dr: ? Ordering Physician: Arcelia Aldridge NP ?? Date of Service: 11/14/24 ?? Procedure(s): XR chest 2V ?? Accession Number(s): [id number] ? cc: [facility]; Arcelia Aldridge NP ? CLINICAL HISTORY: chest [...] Keith Lanza MD in OV> ? 11/14/24 180 ? DD/ 04 ? TD/TT: 11/14/241804 ? Crop Specialist: ? Procedure Note Reyes Ireland - 11/14/[address] [address] XRay Report Signed Patient: Susie Rutherford#: [id number] : 1985Acct:[id number] Age/Sex: 38 / MADM Date: 11/14/24 Loc: HO.ED Attending Dr: Ordering Physician: Arcelia Aldridge NP Date of Service: 11/14/24 Procedure(s): XR chest 2V Accession Number(s): [id number] cc: [facility]; Arcelia Aldridge NP CLINICAL HISTORY: chest pain, [...] in OV> 11/14/241805 DD/ 04 TD/TT: 11/14/241804 Crop Specialist: [facility] External Provider IMG XR PROCEDURES Final Result * SARS-CoV-2 RNA, Influenza A/B, and RSV RNA, Ql NAAT (11/14/2024 5:32 PM EST) Influenza A PCR NEGATIVE Negative [facility] Influenza B PCR NEGATIVE Negative [facility] Resp Syncy Virus RNA Qual PCR NEGATIVE Negative [facility] SARS COV2 PCR NEGATIVE Negative [facility] Comment:All test results mus t be [...] use by authorized laboratories.Testing performed on the [employer] GeneXpert utilizingreal-time RT-PCR.All SARS CoV2 and positive influenza A/B results arereported to [facility]. 11/14/2024 5:32 PM EST 11/14/2024 5:34 PM EST Generic External Data Provider LAB MICROBIOLOGY - GENERAL ORDERABLES Final Result Performing Organization Address [facility]/ZIP Co de Phone Number [facility] [address] [place] [phone] * High Sensitivity Troponin I (11/14/2024 5:32 PM EST) Pathologist [facility] TROPONIN I HIGH SENSITIVITY <2.7 <3.5 - 35.0 ng/L [facility] Comment:The Garcia high sens itivity Troponin-I results should beused in conjunction with other diagnostic information suchas ECG, clinical observations and information, and patientsymptoms to aid in the diagnosis of [place]. 11/14/2024 5:32 PM EST 11/14/2024 5:34 PM EST Generic External Data Provider LAB BLOOD ORDERAB LES Final Result Performing Organization Address [facility] Co de Phone Number [facility] [address] [place] [phone] * (ABNORMAL) Comprehensive Metabolic Panel (11/14/2024 5:32 PM EST) [facility] Sodium 142 135 - 145 mmol/L [facility] Potassium 4.0 3.3 - 5.1 mmol/L [facility] Chloride 108 96 - 108 mmol/L [facility] Carbon Dioxide 27 22 - 29 mmol/L [facility] Anion Gap 11(L) 12 - 20 [facility] Urea Nitrogen (BUN) 9 9 - 16 mg/dL [facility] Creatinine, Serum 0.67 0.5 - 1.4 mg/dL [facility] Creatinine Clr Calc Pharmacy 113.1 [facility] Comment:eGFR (calculated fro m the MDRD study equation) and eCrCl(calculated from the Cockcroft-Gault equation) are based ondifferent parameters and may not yield comparable results.If eCrCl result is absurd, please check patient'sheight/weight. Estimated Glomerular Filt Rate >60 [facility] Comment:Chronic Kidney Disea se: Estimated GFR < 60 mL/min/1.01s8Xiplha Kidney Disease: Estimated GFR < 15 mL/min/1.73m2 Glucose 95 60 - 115 mg/dL [facility] Calcium 9.4 8.4 - 10.2 mg/dL [facility] Bilirubin, Total 0.3 0.0 - 1.0 mg/dL [facility] Aspartate Amino Transferase 20 5 - 37 U/L [facility] Alanine Aminotransferase 10 0 - 40 U/L [facility] Total Protein 8.1(H) 6.5 - 8.0 g/dL [facility] Albumin Level 4.3 3.5 - 5.0 g/dL [facility] Alkaline Phosphatase 80 39 - 117 U/L [facility] 11/14/2024 5:32 PM EST 11/14/2024 5:34 PM EST us Generic External Data Provider LAB BLOOD ORDERAB LES Final Result [facility] [address] [place] [phone] * (ABNORMAL) CBC auto differential (11/14/2024 5:32 PM EST) White Blood Count 4.6(L) 4.8 - 10.8 X10*3/uL [facility] Red Blood Count 3.98(L) 4.60 - 5.80 X10*6/uL [facility] Hemoglobin 12.2(L) 14.0 - 18.0 g/dl [facility] Hematocrit 35.3(L) 42.0 - 52.0 % [facility] Mean Corpuscular Volume 88.7 80.0 - 98.0 fL [facility] Mean Corpuscular Hemoglobin 30.7 27.0 - 33.0 pg [facility] Mean Corpuscular HGB Conc 34.6 31.0 - 36.0 g/dl [facility] Red Cell Distribution Width 13.2 11.0 - 16.0 % [facility] Platelet Count 274 160 - 400 X10*3/uL [facility] Mean Platelet Volume 9.0(L) 9.4 - 12.4 fL [facility] Neutrophils Percent Auto 61.0 45 - 73 % [facility] Imm Gran Pct Auto 0.4 0.0 - 0.4 % [facility] Lymphocytes Percent Auto 25.5 20 - 40 % [facility] Monocytes Percent Auto 12.3(H) 2 - 11 % [facility] Eosinophils Percent Auto 0.2 0 - 4 % [facility] Basophils Percent Auto 0.6 0 - 2 % [facility] NRBC Pct Auto 0.0 0.0 - 0.2 /100WBC [facility] Neutrophils Absolute Auto 2.8 2.0 - 8.3 x10*3/uL [facility] Imm Gran Abs Auto 0.02 0.00 - 0.03 X10*3/uL [facility] Lymphocytes Absolute Auto 1.2 1.2 - 4.9 X10*3/uL [facility] Monocytes Absolute Auto 0.6 0.1 - 1.2 X10*3/uL [facility] Eosinophils Absolute Auto 0.0 0.0 - 0.4 X10*3/uL [facility] Basophils Absolute Auto 0.0 0.0 - 0.2 X10*3/uL [facility] NRBC Abs Auto 0.000 0.0 - 0.012 X10*3/uL [facility] 11/14/2024 5:32 PM EST 11/14/2024 5:34 PM EST us Generic External Data Provider LAB BLOOD ORDERAB LES Final Result [facility] [address] [place] [address] [phone] * Prothrombin Time-INR (11/14/2024 5:32 PM EST) Prothrombin Time 11.6 10.9 - 12.4 SEC [facility] INTERNATIONAL NORM RATIO 1.0 0.9 - 1.1 [facility] Comment:INTERNATIONAL NORMAL IZED RATIO (INR) REFERENCE [...] Provider LAB BLOOD ORDERAB LES Final Result Performing Organization Address City/State/[facility] Co de Phone Number [facility] [address] [place] [phone] documented in this encounter Visit Diagnoses Not on filedocumented in this encounter Care Teams Manager Clinical Research Relationship Specialty Start Date End Date Hina Aguilar ANP [address] [place] [phone] PCP - General Family Medicine 07/09/20 documented as of this encounter
--- OUTSIDE RECORDS SUMMARY | 2024-11-14 20:00 | XMS_ITS | Clinical Summary ---
Author Organization [employer] [facility] Address [address] [place] [address] Care Team Providers Care Wood Form Builder Name Role Phone Unavailable Primary Care Provider Unavailabl e Social History Tobacco Use Types Packs/Day Years Used Date Smoking Tobacco: Never Assessed Sex and Gender Information Value Date Recorded Sex Assigned at Not on file Legal Sex Male 7:38 AM EST Gender Identity Not on file Sexual Orientation Not on file Plan of Treatment Health Maintenance Due Date Last Done Comments DTaP,Tdap,and Td Vaccines (1 - Tdap) 2004 Hepatitis B Vaccines (1 of 3 - 19+ 3-dose series) 2004 COVID-19 Vaccine (2023-2 5 season) 2024 Influenza Vaccine (#1) 2024 HIB Vaccines Aged Out No longer eligi ble based on patient's age to complete this topic HPV Vaccines Aged Out No longer eligi ble based on patient's age to complete this topic Hepatitis A Vaccines Aged Out No long er eligible based on patient's age to complete this topic IPV Vaccines Aged Out No longer eligi ble based on patient's age to complete this topic MMR Vaccines Aged Out No longer eligi ble based on patient's age to complete this topic Meningococcal ACWY Vaccine Aged Out N o longer eligible based on patient's age to complete this topic Meningococcal B Vacine Aged Out No lo nger eligible based on patient's age to complete this topic Pneumococcal Vaccine: Pediat rics (0 to 5 Years) and At-Risk Patients (6 to 64 Years) Aged Out No longer eligible b ased on patient's age to complete this topic RSV Immunization Patients Un argenis 20 months Aged Out No longer eligible b ased on patient's age to complete this topic Varicella Vaccines Aged Out No longer eligible based on patient's age to complete this topic
--- OUTSIDE RECORDS SUMMARY | 2024-11-14 20:00 | XMS_ITS | Encounter Summary ---
Author Organization [employer] [facility] Address [address] [place] [address] Care Team Providers Care Clinical Cytogeneticist Name Role Phone Hina Aguilar Primary Care Provider [phone] Reason for Visit * Reason Comments Med Refill Encounter Details Date Type Department Care Team (Late st Contact Info) Description 10/05/2023 Refill [facility] [address] [place] [phone] Jose Rodas MD [address] [place] [phone] Uncomplicated opioid dependence (CMS/HCC) Social History Tobacco [...] Clinical Support [facility] [address] [place] [phone] Sayra Xiong RN documented as of this encounter Visit Diagnoses Diagnosis Uncomplicated opioid dependence (CMS/HCC) documented in this encounter Care Teams Clinical Cytogeneticist Relationship Specialty Start Date End Date Hina Aguilar ANP [address] [place] [phone] PCP - General Family Medicine 07/09/20 documented as of this encounter
--- OUTSIDE RECORDS SUMMARY | 2024-11-14 20:00 | XMS_ITS | Encounter Summary ---
Author Organization [employer] [facility] Address [address] [place] [address] 7[address] [place] [address] Care Team Providers Care Mechanical Shovel Operator Name Role Phone Hina Aguilar Primary Care Provider [phone] Encounter Details Date Type Department Care Team (Late st Contact Info) Description 11/14/[address] [address] Elisa Blackburn [place] Social History Tobacco Use Types Packs/Day Years [...] encounter Miscellaneous Notes * Telephone Encounter - Elisa Blackburn MA - 11/14/2024 2:46 PM EST Pt called in asking if his suboxone can be delivered to him tomorrow. Pt was due for refill today, I called pharmacy to give okay for pt to have rx. Pt made aware he will receive delivery tomorrow morning. documented in this encounter Plan of Treatment Upcoming Encounters Date Type Department Care Team (Late st Contact Info) Description 12/12/2024 2:00 PM EDT Clinical Support [facility] [address] [place] [address] [phone] Sayra Xiong RN documented as of this encounter Visit Diagnoses Not on filedocumented in this encounter Care Teams Mechanical Shovel Operator Relationship Specialty Start Date End Date Hina Aguilar ANP [address] [place] [address] PCP - General Family Medicine 07/09/20 documented as of this encounter
[2024-11-14 22:41] VITALS: BP 132/77; PULSE 65; RESP 20; TEMP 36.7; O2SAT 98
[2024-11-14] MEDS: methocarbamoL 750 MG TABLET PO (22:53)
[2024-11-14] MEDS: Ketorolac Tromethamine 15 MG/ML VIAL IM (22:54)
[2024-11-14 23:56] VITALS: BP 132/77; PULSE 65; RESP 20; TEMP 36.7; O2SAT 98
== END 2024-11-14 23:57 | disposition home or self-care (01) ==
PROVIDERS: Registered Nurse Emergency; Emergency Provider Emergency Medicine Emergency Medical Services
DX: M94.0 Chondrocostal junction syndrome [Tietze] (principal); K59.00 Constipation, unspecified; M54.50 Low back pain, unspecified; R10.2 Pelvic and perineal pain; Z03.818 Encounter for observation for suspected exposure to other biological agents ruled out; Z79.899 Other long term (current) drug therapy
CPT/HCPCS: 0241U; 71046; 74018; 80053; 84484; 85025; 85610; 93005; 96372; 99284; J1885

== ENCOUNTER → 2024-11-14 17:19 | Outpatient (BNV) | payer MEDICAID, SELFPAY | PROVIDERS: Visit Provider Nuclear Medicine | DX: R10.9 Unspecified abdominal pain (principal) | CPT/HCPCS: 71046; 74018 ==

== ENCOUNTER → 2024-11-14 17:19 | Outpatient (BNV) | payer MEDICAID, SELFPAY | PROVIDERS: Emergency Provider Emergency Medicine Emergency Medical Services; Visit Provider Internal Medicine Cardiovascular Disease | DX: R07.9 Chest pain, unspecified (principal) | CPT/HCPCS: 93010 ==